=== PATIENT | male | born 2005 | race Caucasian/White ===

== ENCOUNTER 2024-04-16 00:10 | Emergency (ER) | payer BC, SELFPAY ==
[2024-04-16 00:23] VITALS: BP 151/92; PULSE 112; TEMP 37.5; O2SAT 98; BMI 19.2
--- NOTE | 2024-04-16 00:28 | PC.NURSE ---
this patient complains of a headache onset 1 day ago. this patient denies any recent falls, injury or trauma to cause this headache. this patient had is tonsil removed on 04/11/2024 in [facility]
--- NOTE | 2024-04-16 01:00 | ED.GENADUL1 ---
HPI HPI - General Adult General Chief complaint: Headache Stated complaint: HEADACHE, POST SURGERY Time Seen by Provider: 04/16/24 00:17 Source: patient and family Mode of arrival: walk-in Limitations: no limitations History of Present Illness HPI narrative: This 18-year-old male who had a tonsillectomy on April 11 is brought to the emergency department by his mother for evaluation of a bitemporal headache that started yesterday. Postoperatively, the patient initially was not given any pain medication because he was prescribed Roxicet which none of the pharmacies were able to fill. He was then given a prescription for oxycodone which he has been able to tolerate since that time. His headache started Monday. He has been trying to eat but has only been able to eat small amounts due to sore throat and has had very little to drink. He has not had any active bleeding from the tonsils. He has not had a bowel movement since starting to take the oxycodone. His mother states that they called Dr. Zarate and he was told to cut back on the oxycodone and only take a half a oxycodone with one Tylenol every 6 hours which he has been doing without any significant relief. He does not have any neck pain or stiffness. He has had several similar headaches in the past once when he had chickenpox and 1 other time. He does not have a history of chronic headaches. He has mild photophobia and mild nausea but has not vomited. Related Data Home Medications ?Medication ?Instructions ?Recorded ?Confirmed acetaminophen 325 mg tablet (Pain 325 mg PO Q6H PRN fever or pain 04/16/24 04/16/24 Relief (acetaminophen)) oxycodone 5 mg tablet mg 04/16/24 Allergies Allergy/AdvReac Type Severity Reaction Status Date / Time No Known Drug Allergies Allergy Verified 04/16/24 00:21 Opioid HPI Opioid Management Most Recent Opioid Data: Last Pain Scale 10 04/16/24 01:27 04/16/24 Last MAR Pain Assessment 04/16/24 01:27 Review of Systems ROS Status of ROS 10 or more systems reviewed and unremarkable except as noted in history and below PFSH PFSH Social History Little interest or pleasure in doing things: not at all Feeling down, depressed, or hopeless: not at all Exam Narrative Exam Narrative: Vital signs and Nursing Notes reviewed: Patient has a low-grade fever is mildly tachycardic, blood pressure is mildly elevated 150/92, he is not hypoxic with pulse ox of 98% on room air General: Awake, alert, oriented, nontoxic but pale and uncomfortable appearing thin male, no respiratory distress, GCS 15 HEENT: Normocephalic atraumatic, mucous membranes are slightly dry, Neck: Supple, no meningeal signs, mild anterior cervical lymphadenopathy, no nuchal rigidity Chest: Lungs are clear to auscultation with good air entry, there is no wheezing rhonchi or rales appreciated no accessory muscle use, patient is speaking in complete sentences-no chest wall tenderness to palpation CVS: Regular rate and rhythm S1-S2, mildly tachycardic with pulse of 112 at triage no murmurs rubs or gallops, pulses are brisk and equal bilaterally ABD: Soft, nondistended, nontender, no rebound guarding or rigidity, bowel sounds are normal, no pulsatile masses appreciated Extremities: Moving all extremities, no lower extremity tenderness or swelling noted, negative Homans' sign, pulses are brisk and equal bilaterally Skin: Pale, dry, no skin rash noted Neuro: No focal deficits, speech is clear, 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, GCS is 15 Constitutional Vital Signs, click to edit/add: Last Vital Signs Temp 99.5 F 04/16/24 00:23 Pulse 112 H 04/16/24 00:23 Resp 18 04/16/24 00:23 BP 151/92 H 04/16/24 00:23 Pulse Ox 98 04/16/24 00:23 O2 Del Method Room Air 04/16/24 00:23 Course Vital Signs Vital signs: Vital Signs Temperature 99.5 F 04/16/24 00:23 Pulse Rate 112 H 04/16/24 00:23 Respiratory Rate 18 04/16/24 00:23 Blood Pressure 151/92 H 04/16/24 00:23 Pulse Oximetry 98 04/16/24 00:23 Oxygen Delivery Method Room Air 04/16/24 00:23 Temperature 99.5 F 04/16/24 00:23 Pulse Rate 112 H 04/16/24 00:23 Respiratory Rate 18 04/16/24 00:23 Blood Pressure 151/92 H 04/16/24 00:23 Pulse Oximetry 98 04/16/24 00:23 Oxygen Delivery Method Room Air 04/16/24 00:23 Medical Decision Making MDM Narrative Medical decision making narrative: This 18-year-old male who is 5 days postop tonsillectomy at a local surgery center is brought to emergency department by his mother for evaluation of a headache that started yesterday. The patient has been taking a half of a oxycodone and a Tylenol every 6 hours. The mother states he developed a headache yesterday. The medications have not helped his headache. He was initially taking a whole oxycodone and Tylenol and they spoke to the ENT who thought that his headache may be related to the medication who suggested taking just a half. This has not helped him and he has not been able to sleep. He has a bitemporal headache associated with some mild nausea and photophobia. He does not have any nuchal rigidity or fever. The mother states initially he was tolerating liquids and soft foods but has not really eaten in the past 24 hours. The patient's vital signs were stable with the exception of a mildly elevated pulse at 112. He is not having any tonsillar bleeding. His voice is clear. There is no trismus or drooling. He does have some mild fullness in the anterior cervical lymph node chain. An IV was placed and he was medicated with IV fluids, Reglan, Benadryl and 15 mg of Toradol. Routine labs were ordered and are reviewed. He has a normal white count and stable hemoglobin. Electrolytes are normal. LFTs are mildly elevated which are nonspecific in nature. On reevaluation his headache is now a 2 and he feels much more comfortable. The patient has also been constipated since taking the oxycodone and I suggested that he take some MiraLAX which his mother has at home. I did suggest that they speak to the ENT and see if he can transition to taking ibuprofen since he is postop day 5 from his tonsillectomy and has not had any bleeding. He will be discharged home with a prescription for Reglan which may help with his headache and nausea. Lab Data Lab results reviewed: Yes I reviewed the patient's lab results Labs: Lab Results 04/16/24 Range/Units 01:18 WBC 9.1 (4.0-11.0) 10^3/uL RBC 4.93 (4.70-6.10) 10^6/uL Hgb 14.8 (14.0-18.0) g/dL Hct 43.7 (42.0-54.0) % MCV 88.6 (80.0-94.0) fL MCH 30.0 (25.9-34.0) pg MCHC 33.9 (29.9-35.2) g/dL RDW 12.6 (11.0-15.0) % Plt Count 162 (150-450) 10^3/uL MPV 12.1 (9.5-13.5) fL Neut % (Auto) 81.7 H (43.0-75.0) % Lymph % (Auto) 7.9 L (20.5-60.0) % [place] % (Auto) 9.8 (1.7-12.0) % Eos % (Auto) 0.1 L (0.9-7.0) % Baso % (Auto) 0.3 (0.2-2.0) % Neut # (Auto) 7.4 H (1.4-6.5) 10^3/uL Lymph # (Auto) 0.7 L (1.2-3.8) 10^3/uL [place] # (Auto) 0.9 H (0.3-0.8) 10^3/uL Eos # (Auto) 0.0 (0.0-0.7) 10^3/uL Baso # (Auto) 0.0 (0.0-0.1) 10^3/uL Abs Immat Gran (auto) 0.02 (0.00-0.03) 10^3/uL Imm/Tot Granulo (auto) 0.2 (0.0-0.5) % Sodium 140 (136-145) mmol/L Potassium 4.1 (3.5-5.1) mmol/L Chloride 99 (98-107) mmol/L Carbon Dioxide 27.3 (21.0-32.0) mmol/L Anion Gap 17.8 BUN 14.0 (7.0-18.0) mg/dL Creatinine 0.95 (0.70-1.30) mg/dL Est GFR ( Amer) >60 (>=60 mL/min/1.73m^2) Est GFR (Non-Af Amer) >60 (>=60 mL/min/1.73m^2) BUN/Creatinine Ratio 14.7 Glucose 80 (74-106) mg/dL Calcium 9.3 (8.5-10.1) mg/dL Total Bilirubin 1.6 H (0.2-1.0) mg/dL AST 8 L (15-37) U/L ALT 15 L (16-63) U/L Alkaline Phosphatase 63 (46-116) U/L Total Protein 7.7 (6.4-8.2) g/dL Albumin 4.5 (3.4-5.0) g/dL Globulin 3.2 g/dL Albumin/Globulin Ratio 1.4 Discharge Plan Discharge Chief Complaint: Headache Clinical Impression: Headache Patient Disposition: Home, Self-Care Time of Disposition Decision: 02:24 Condition: Good Prescriptions / Home Meds: No Action oxycodone 5 mg tablet acetaminophen [Pain Relief (acetaminophen)] 325 mg tablet 325 mg PO Q6H PRN (Reason: fever or pain) Print Language: Italian Instructions: Acute Headache (ED) Referrals: Matt VAUGHAN [Primary Care Provider] - 1 week
[2024-04-16 01:23] LABS: Basophils Percent Auto 0.3 % (0.2-2.0); Eosinophils Percent Auto 0.1 % (0.9-7.0); Hematocrit 43.7 % (42.0-54.0); Hemoglobin 14.8 g/dL (14.0-18.0); Immature Granulocytes Abs Auto 0.02 10^3/uL (0.00-0.03); Immature Granulocytes Pct Auto 0.2 % (0.0-0.5); Lymphocytes Absolute Auto 0.7 10^3/uL (1.2-3.8); Lymphocytes Percent Auto 7.9 % (20.5-60.0); Mean Corpuscular HGB Conc 33.9 g/dL (29.9-35.2); Mean Corpuscular Volume 88.6 fL (80.0-94.0); Mean Platelet Volume 12.1 fL (9.5-13.5); Monocytes Absolute Auto 0.9 10^3/uL (0.3-0.8); Monocytes Percent Auto 9.8 % (1.7-12.0); Neutrophils Absolute Auto 7.4 10^3/uL (1.4-6.5); Neutrophils Percent Auto 81.7 % (43.0-75.0); Platelet Count 162 10^3/uL (150-450); Red Blood Count 4.93 10^6/uL (4.70-6.10); Red Cell Distribution Width 12.6 % (11.0-15.0); White Blood Count 9.1 10^3/uL (4.0-11.0)
[2024-04-16] MEDS: DIPHENHYDRAMINE HCL 50 MG/ML VIAL 12.5 MG IV (01:26)
[2024-04-16] MEDS: 0.9 % SODIUM CHLORIDE 1,000 ML 1000 ML IV (01:26)
[2024-04-16] MEDS: METOCLOPRAMIDE HCL 10 MG/2 ML VIAL IVP (01:27)
[2024-04-16] MEDS: KETOROLAC TROMETHAMINE 30 MG/ML VIAL 15 MG IVP (01:27)
[2024-04-16 01:41] LABS: Alanine Aminotransferase 15 U/L (16-63); Albumin Globulin Ratio 1.4; Albumin Level 4.5 g/dL (3.4-5.0); Alkaline Phosphatase 63 U/L (46-116); Anion Gap 17.8; Aspartate Amino Transferase 8 U/L (15-37); BUN Creatinine Ratio 14.7; Bilirubin Total 1.6 mg/dL (0.2-1.0); Calcium 9.3 mg/dL (8.5-10.1); Carbon Dioxide 27.3 mmol/L (21.0-32.0); Chloride 99 mmol/L (98-107); Estimated GFR (African America >60 (>=60 mL/min/1.73m^2); Estimated GFR (Non-African Ame >60 (>=60 mL/min/1.73m^2); Globulin 3.2 g/dL; Glucose 80 mg/dL (74-106); Potassium 4.1 mmol/L (3.5-5.1); Sodium 140 mmol/L (136-145); Total Protein 7.7 g/dL (6.4-8.2)
[2024-04-16 02:31] VITALS: BP 139/74; PULSE 72; O2SAT 98
--- NOTE | 2024-04-16 02:38 | PC.NURSE ---
i gave this patient verbal and paper discharge orders along with 1 Rx, and this patient voices yes too understanding these. at time of discharge this patient nor his mother voices no concerns and shows no signs of distress
== END 2024-04-16 02:40 | disposition home or self-care (01) ==
PROVIDERS: Emergency Provider Emergency Medicine; PCP Family Medicine
DX: R51.9 Headache, unspecified (principal); Z98.890 Other specified postprocedural states
CPT/HCPCS: 36415; 80053; 85025; 96374; 96375; 99284; J1200; J1885; J2765

== ENCOUNTER 2024-04-16 06:04 | Day surgery (SDC) | payer BC, SELFPAY ==
[2024-04-16] VITALS (19 sets, daily range): BP systolic 127–158; BP diastolic 76–104; PULSE 61–110; TEMP 36.2–37; O2SAT 93–100
--- NOTE | 2024-04-16 | OP_ITS ---
OPERATION DATE: 04/16/2024 TIME: 09:36 a.m. PREOPERATIVE DIAGNOSIS: Oropharyngeal hemorrhage. POSTOPERATIVE DIAGNOSIS: Oropharyngeal hemorrhage. PROCEDURE: Controllable oropharyngeal hemorrhage. SURGEON: Dawood English D.O. ANESTHESIA: General. BLOOD LOSS: Less than 50 cc. COMPLICATIONS: None. GROSS FINDINGS: This is a 18-year-old white male, who has previously undergone tonsillectomy. Patient developed severe cephalgia requiring visit to the emergency department. He was given Toradol for his headache. Subsequently, he developed acute onset of bleeding. Patient continued to have bleeding despite conservative measures in the emergency room. ENT was subsequently consulted. Patient was examined in the emergency department, found to have evidence of bleeding from the right tonsil fossa. Patient was emergently brought to the operative theater for control. Intraoperatively, a large clot was identified in the inferior aspect of the right tonsil fossa. This was controlled using a combination of suction cautery and hemostatic sutures. Hemostatic material was placed in the tonsil fossa. The stomach was also suctioned. PROCEDURE: Lane was brought to OR suite at [facility], at which time general anesthesia was administered via endotracheal tube. The patient placed in supine position. He was prepped and draped in normal fashion. Mouth gag was placed into the oral airway and opened, exposing the oropharynx. Obvious bleeding was identified in the area of the right tonsil fossa with a large clot. The mouth and throat were suctioned of all residual secretions. The clot was removed from the fossa revealing evidence of bleeding at the inferior pole on the right. This initially was controlled using cauterization with some limitation of the bleeding. Hemostatic sutures were then placed using 3-0 Vicryl figure of eight sutures on a tapered needle. Hemostatic sutures were placed and bleeding was controlled. Mouth and throat suctioned of all residual secretions. Stomach was then suctioned of all residual blood. The mouth gag was then taken off suspension and reopened. Hemostatic Floseal was placed in the tonsil fossa and direct pressure was applied using a tonsil sponge for 2 minutes per side. Once again, the mouth and throat were suctioned of all residual secretions. The mouth gag was released and, once again, reopened after 15 seconds, with no evidence of bleeding. The mouth gag was released and removed from the oral airway. Anesthesia reversed and the patient awoke without difficulty. The patient was taken to Post Anesthesia Care Unit in stable and satisfactory condition. FELIPED
--- NOTE | 2024-04-16 06:20 | ED_ITS ---
Documented by User: Carol Jack MD 04/16/24 06:56 HPI HPI - General Adult General Chief complaint: Dental/Oral Stated complaint: COUGHING BLOOD Time Seen by Provider: 04/16/24 07:14 Source: patient Mode of arrival: walk-in Limitations: no limitations History of Present Illness HPI narrative: This 18-year-old male who is postop day 5 for a tonsillectomy at the local surgery center is brought to the emergency department by his mother for bleeding. The patient was seen in the emergency department earlier for a headache and treated with 15 mg of Toradol Benadryl and Reglan with clinical improvement. Was able to eat 2 popsicles he woke up this morning and spit up some blood. His mother states he spit up quite a bit of blood before coming the emergency department. He has not had any vomiting. He has not had any fever. He is not on any antibiotics. Related Data Home Medications ?Medication ?Instructions ?Recorded ?Confirmed acetaminophen 325 mg tablet (Pain 325 mg PO Q6H PRN fever or pain 04/16/24 04/16/24 Relief (acetaminophen)) oxycodone 5 mg tablet mg 04/16/24 Allergies Allergy/AdvReac Type Severity Reaction Status Date / Time No Known Drug Allergies Allergy Verified 04/16/24 06:15 Opioid HPI Opioid Management Most Recent Opioid Data: Last Pain Scale 10 04/16/24 01:27 04/16/24 Last MAR Pain Assessment 04/16/24 01:27 Review of Systems ROS Status of ROS 10 or more systems reviewed and unremark able except as noted in history and below [facility] Surgical History (Updated 04/16/24 @ 07:41 by Sury Plaza RN) [place] teeth extracted ?K08.409 - Partial loss of teeth, unspecified cause, unspecified class (ICD- 10) History of tonsillectomy ?Z90.89 - Acquired absence of other organs (ICD-10) Social History Little interest or pleasure in doing things: not at all Feeling down, depressed, or hopeless: not at all Exam Narrative Exam Narrative: Vital signs and Nursing Notes reviewed: Patient is mildly tachycardic with a pulse of 101 with elevated blood pressure at 149/104, he is not hypoxic with pulse ox of 99% on room air General: Thin anxious male, he is spitting up mucus with blood no respiratory distress HEENT: Normocephalic atraumatic, mucous membranes are moist and pink, eyes are clear, normal conjunctiva, vision is grossly intact, posterior pharynx reveals a healing eschar with clot on the left tonsillar area, there is no pulsatile bleeding noted patient is gagging due to the blood Neck: Supple, no meningeal signs, no anterior or posterior cervical lymphadenopathy Chest: Lungs are clear to auscultation with good air entry, there is no wheezing rhonchi or rales appreciated no accessory muscle use, patient is speaking in complete sentences-no chest wall tenderness to palpation CVS: Regular rate and rhythm S1-S2, no murmurs rubs or gallops, pulses are brisk and equal bilaterally ABD: Soft, nondistended, nontender, no rebound guarding or rigidity, bowel sounds are normal, no pulsatile masses appreciated Extremities: Moving all extremities Skin: Normal in appearance without rash,pallor, petechiae or purpura Neuro: No focal deficits Constitutional Vital Signs, click to edit/add: Last Vital Signs Pulse 101 H 04/16/24 06:11 Resp 20 04/16/24 06:11 BP 149/104 H 04/16/24 06:11 Pulse Ox 100 04/16/24 06:12 O2 Del Method Room Air 04/16/24 06:12 Course Vital Signs Vital signs: Vital Signs Pulse Rate 101 H 04/16/24 06:11 Respiratory Rate 20 04/16/24 06:11 Blood Pressure 149/104 H 04/16/24 06:11 Pulse Oximetry 99 04/16/24 06:11 Oxygen Delivery Method Room Air 04/16/24 06:11 Pulse Rate 101 H 04/16/24 06:11 Respiratory Rate 20 04/16/24 06:11 Blood Pressure 149/104 H 04/16/24 06:11 Pulse Oximetry 100 04/16/24 06:12 Oxygen Delivery Method Room Air 04/16/24 06:12 Medical Decision Making MDM Narrative Medical decision making narrative: This 18-year-old male who is 5 days postop tonsillectomy presents for evaluation of bleeding. The patient was seen earlier in this emergency department for headache and was medicated with Toradol Benadryl and Reglan with clinical improvement. He appeared to be somewhat dehydrated. His headache resolved but he woke up this morning around 530 and was spitting up clots of blood. He was brought back to the emergency department by his mother. He is mildly tachycardic upon arrival. He does appear to have a clot in the left tonsillar area. There is no pulsatile bleeding or arterial bleeding that I can appreciate. An IV was placed and he was given IV fluids, Zofran in case he swallowed blood as well as IV TXA and nebulized TXA. After the nebulized TXA his spitting of blood and mucus decreased. I did speak to Dr. Zarate who is in agreement with the TXA and suggested after the TXA he gargle with ice water. He states he thought he was supposed to see him later in the day in his office for postop follow-up with the mother states he is supposed to see him on . I explained to her that is likely we can get him seen earlier than in light of this bleeding. Routine labs are reviewed. He did have labs drawn earlier for comparison. His hemoglobin earlier was 14.8 and he did receive a liter of normal saline. His hemoglobin is now 14.2. He has a normal white count. Lab Data Labs: Lab Results 04/16/24 Range/Units 06:35 WBC 8.2 (4.0-11.0) 10^3/uL RBC 4.67 L (4.70-6.10) 10^6/uL Hgb 14.2 (14.0-18.0) g/dL Hct 41.0 L (42.0-54.0) % MCV 87.8 (80.0-94.0) fL MCH 30.4 (25.9-34.0) pg MCHC 34.6 (29.9-35.2) g/dL RDW 12.5 (11.0-15.0) % Plt Count 176 (150-450) 10^3/uL MPV 12.4 (9.5-13.5) fL Neut % (Auto) 72.1 (43.0-75.0) % Lymph % (Auto) 15.6 L (20.5-60.0) % [place] % (Auto) 11.7 (1.7-12.0) % Eos % (Auto) 0.0 L (0.9-7.0) % Baso % (Auto) 0.4 (0.2-2.0) % Neut # (Auto) 5.9 (1.4-6.5) 10^3/uL Lymph # (Auto) 1.3 (1.2-3.8) 10^3/uL [place] # (Auto) 1.0 H (0.3-0.8) 10^3/uL Eos # (Auto) 0.0 (0.0-0.7) 10^3/uL Baso # (Auto) 0.0 (0.0-0.1) 10^3/uL Abs Immat Gran (auto) 0.02 (0.00-0.03) 10^3/uL Imm/Tot Granulo (auto) 0.2 (0.0-0.5) % Sodium 140 (136-145) mmol/L Potassium 4.2 (3.5-5.1) mmol/L Chloride 104 (98-107) mmol/L Carbon Dioxide 25.7 (21.0-32.0) mmol/L Anion Gap 14.5 BUN 15.0 (7.0-18.0) mg/dL Creatinine 0.74 (0.70-1.30) mg/dL Est GFR ( Amer) >60 (>=60 mL/min/1.73m^2) Est GFR (Non-Af Amer) >60 (>=60 mL/min/1.73m^2) BUN/Creatinine Ratio 20.3 Glucose 99 (74-106) mg/dL Calcium 9.0 (8.5-10.1) mg/dL Total Bilirubin 1.6 H (0.2-1.0) mg/dL AST 29 (15-37) U/L ALT 18 (16-63) U/L Alkaline Phosphatase 55 (46-116) U/L Total Protein 7.4 (6.4-8.2) g/dL Albumin 4.1 (3.4-5.0) g/dL Globulin 3.3 g/dL Albumin/Globulin Ratio 1.2 Discharge Plan Discharge Chief Complaint: Dental/Oral Patient Disposition: Admitted to Surgery Prescriptions / Home Meds: No Action oxycodone 5 mg tablet acetaminophen [Pain Relief (acetaminophen)] 325 mg tablet 325 mg PO Q6H PRN (Reason: fever or pain) Print Language: Egyptian Referrals: Matt VAUGHAN [Primary Care Provider] - 1 week Documented by User: Solo Berry MD 04/16/24 07:42 HPI HPI - General Adult General Chief complaint: Dental/Oral Stated complaint: COUGHING BLOOD Time Seen by Provider: 04/16/24 07:14 Related Data Home Medications ?Medication ?Instructions ?Recorded ?Confirmed acetaminophen 325 mg tablet (Pain 325 mg PO Q6H PRN fever or pain 04/16/24 04/16/24 Relief (acetaminophen)) oxycodone 5 mg tablet mg 04/16/24 Allergies Allergy/AdvReac Type Severity Reaction Status Date / Time No Known Drug Allergies Allergy Verified 04/16/24 06:15 Opioid HPI Opioid Management Most Recent Opioid Data: Last Pain Scale 10 04/16/24 01:27 04/16/24 Last MAR Pain Assessment 04/16/24 01:27 PFSH [facility] Surgical History (Updated 04/16/24 @ 07:41 by Sury Plaza RN) [place] teeth extracted ?K08.409 - Partial loss of teeth, unspecified cause, unspecified class (ICD- 10) History of tonsillectomy ?Z90.89 - Acquired absence of other organs (ICD-10) Social History Little interest or pleasure in doing things: not at all Feeling down, depressed, or hopeless: not at all Exam Constitutional Vital Signs, click to edit/add: Last Vital Signs Pulse 101 H 04/16/24 06:11 Resp 20 04/16/24 06:11 BP 149/104 H 04/16/24 06:11 Pulse Ox 100 04/16/24 06:12 O2 Del Method Room Air 04/16/24 06:12 Course Vital Signs Vital signs: Vital Signs Pulse Rate 101 H 04/16/24 06:11 Respiratory Rate 20 04/16/24 06:11 Blood Pressure 149/104 H 04/16/24 06:11 Pulse Oximetry 99 04/16/24 06:11 Oxygen Delivery Method Room Air 04/16/24 06:11 Pulse Rate 101 H 04/16/24 06:11 Respiratory Rate 20 04/16/24 06:11 Blood Pressure 149/104 H 04/16/24 06:11 Pulse Oximetry 100 04/16/24 06:12 Oxygen Delivery Method Room Air 04/16/24 06:12 Medical Decision Making MDM Narrative Medical decision making narrative: This 18-year-old male who is 5 days postop tonsillectomy presents for evaluation of bleeding. The patient was seen earlier in this emergency department for headache and was medicated with Toradol Benadryl and Reglan with clinical improvement. He appeared to be somewhat dehydrated. His headache resolved but he woke up this morning around 530 and was spitting up clots of blood. He was brought back to the emergency department by his mother. He is mildly tachycardic upon arrival. He does appear to have a clot in the left tonsillar area. There is no pulsatile bleeding or arterial bleeding that I can appreciate. An IV was placed and he was given IV fluids, Zofran in case he swallowed blood as well as IV TXA and nebulized TXA. After the nebulized TXA his spitting of blood and mucus decreased. I did speak to Dr. Zarate who is in agreement with the TXA and suggested after the TXA he gargle with ice water. He states he thought he was supposed to see him later in the day in his office f or postop follow-up with the mother states he is supposed to see him on . I explained to her that is likely we can get him seen earlier than in light of this bleeding. Routine labs are reviewed. He did have labs drawn earlier for comparison. His hemoglobin earlier was 14.8 and he did receive a liter of normal saline. His hemoglobin is now 14.2. He has a normal white count. AG [id number] patient was signed out at normal change of shift, has been given IV TXA, as well as nebulized TXA 0711 patient was reevaluated at bedside, continues to have large clots, spitting out blood. Remainder of TXA was given as gargle 0727 patient has a baseline clots, continuously oozing from the back of the right tonsil. He is protecting his airway at this time. Continues to have bleeding 0732 I discussed with ENT, Dr. Breitenbach. He will cancel his case his surgery center and drive here. 0737 operating room team was mobilized. Lab Data Labs: Lab Results 04/16/24 Range/Units 06:35 WBC 8.2 (4.0-11.0) 10^3/uL RBC 4.67 L (4.70-6.10) 10^6/uL Hgb 14.2 (14.0-18.0) g/dL Hct 41.0 L (42.0-54.0) % MCV 87.8 (80.0-94.0) fL MCH 30.4 (25.9-34.0) pg MCHC 34.6 (29.9-35.2) g/dL RDW 12.5 (11.0-15.0) % Plt Count 176 (150-450) 10^3/uL MPV 12.4 (9.5-13.5) fL Neut % (Auto) 72.1 (43.0-75.0) % Lymph % (Auto) 15.6 L (20.5-60.0) % [place] % (Auto) 11.7 (1.7-12.0) % Eos % (Auto) 0.0 L (0.9-7.0) % Baso % (Auto) 0.4 (0.2-2.0) % Neut # (Auto) 5.9 (1.4-6.5) 10^3/uL Lymph # (Auto) 1.3 (1.2-3.8) 10^3/uL [place] # (Auto) 1.0 H (0.3-0.8) 10^3/uL Eos # (Auto) 0.0 (0.0-0.7) 10^3/uL Baso # (Auto) 0.0 (0.0-0.1) 10^3/uL Abs Immat Gran (auto) 0.02 (0.00-0.03) 10^3/uL Imm/Tot Granulo (auto) 0.2 (0.0-0.5) % Sodium 140 (136-145) mmol/L Potassium 4.2 (3.5-5.1) mmol/L Chloride 104 (98-107) mmol/L Carbon Dioxide 25.7 (21.0-32.0) mmol/L Anion Gap 14.5 BUN 15.0 (7.0-18.0) mg/dL Creatinine 0.74 (0.70-1.30) mg/dL Est GFR ( Amer) >60 (>=60 mL/min/1.73m^2) Est GFR (Non-Af Amer) >60 (>=60 mL/min/1.73m^2) BUN/Creatinine Ratio 20.3 Glucose 99 (74-106) mg/dL Calcium 9.0 (8.5-10.1) mg/dL Total Bilirubin 1.6 H (0.2-1.0) mg/dL AST 29 (15-37) U/L ALT 18 (16-63) U/L Alkaline Phosphatase 55 (46-116) U/L Total Protein 7.4 (6.4-8.2) g/dL Albumin 4.1 (3.4-5.0) g/dL Globulin 3.3 g/dL Albumin/Globulin Ratio 1.2 Discharge Plan Discharge Chief Complaint: Dental/Oral Patient Disposition: Admitted to Surgery Prescriptions / Home Meds: No Action oxycodone 5 mg tablet acetaminophen [Pain Relief (acetaminophen)] 325 mg tablet 325 mg PO Q6H PRN (Reason: fever or pain) Print Language: Egyptian Referrals: Matt VAUGHAN [Primary Care Provider] - 1 week
[2024-04-16] MEDS: TRANEXAMIC ACID 1,000 MG in 0.9 % SODIUM CHLORIDE 100 ML 440 MG IV (06:26)
[2024-04-16] MEDS: ONDANSETRON PF 4 MG/2 ML VIAL IV ×2 (06:26→07:30)
[2024-04-16] MEDS: TRANEXAMIC ACID 1,000 MG/10 ML AMPUL 200 MG IH (06:27)
[2024-04-16 06:42] LABS: Basophils Percent Auto 0.4 % (0.2-2.0); Hemoglobin 14.2 g/dL (14.0-18.0); Immature Granulocytes Abs Auto 0.02 10^3/uL (0.00-0.03); Immature Granulocytes Pct Auto 0.2 % (0.0-0.5); Lymphocytes Absolute Auto 1.3 10^3/uL (1.2-3.8); Lymphocytes Percent Auto 15.6 % (20.5-60.0); Mean Corpuscular HGB Conc 34.6 g/dL (29.9-35.2); Mean Corpuscular Hemoglobin 30.4 pg (25.9-34.0); Mean Corpuscular Volume 87.8 fL (80.0-94.0); Mean Platelet Volume 12.4 fL (9.5-13.5); Monocytes Percent Auto 11.7 % (1.7-12.0); Neutrophils Absolute Auto 5.9 10^3/uL (1.4-6.5); Neutrophils Percent Auto 72.1 % (43.0-75.0); Platelet Count 176 10^3/uL (150-450); Red Blood Count 4.67 10^6/uL (4.70-6.10); Red Cell Distribution Width 12.5 % (11.0-15.0); White Blood Count 8.2 10^3/uL (4.0-11.0)
[2024-04-16] MEDS: 0.9 % SODIUM CHLORIDE 1,000 ML 1000 ML IV (06:48)
[2024-04-16 07:03] LABS: Alanine Aminotransferase 18 U/L (16-63); Albumin Globulin Ratio 1.2; Albumin Level 4.1 g/dL (3.4-5.0); Alkaline Phosphatase 55 U/L (46-116); Anion Gap 14.5; Aspartate Amino Transferase 29 U/L (15-37); BUN Creatinine Ratio 20.3; Bilirubin Total 1.6 mg/dL (0.2-1.0); Carbon Dioxide 25.7 mmol/L (21.0-32.0); Chloride 104 mmol/L (98-107); Estimated GFR (African America >60 (>=60 mL/min/1.73m^2); Estimated GFR (Non-African Ame >60 (>=60 mL/min/1.73m^2); Globulin 3.3 g/dL; Glucose 99 mg/dL (74-106); Potassium 4.2 mmol/L (3.5-5.1); Sodium 140 mmol/L (136-145); Total Protein 7.4 g/dL (6.4-8.2)
[2024-04-16] MEDS: LACTATED RINGER'S SOLUTION 1,000 ML 50 ML IV ×2 (07:51→11:30)
--- NOTE | 2024-04-16 09:29 | PM.DS1 ---
DS: Providers Provider Primary care physician: Matt VAUGHAN DS: Summary Time Spent with Patient Time attestation: Total time spent providing and/or coordinating discharge services: Exam Constitutional Vital Signs, click to edit/add: Last Vital Signs Temp 98.6 F 04/16/24 07:43 Pulse 97 H 04/16/24 07:43 Resp 18 04/16/24 07:43 BP 127/86 04/16/24 07:43 Pulse Ox 98 04/16/24 07:43 O2 Del Method Room Air 04/16/24 06:12 DS: Data Data Completed and Pending Labs on day of discharge: Labs from last 24 hours 04/16/24 06:35 WBC 8.2 RBC 4.67 L Hgb 14.2 Hct 41.0 L MCV 87.8 MCH 30.4 MCHC 34.6 RDW 12.5 Plt Count 176 MPV 12.4 Neut % (Auto) 72.1 Lymph % (Auto) 15.6 L [place] % (Auto) 11.7 Eos % (Auto) 0.0 L Baso % (Auto) 0.4 Neut # (Auto) 5.9 Lymph # (Auto) 1.3 [place] # (Auto) 1.0 H Eos # (Auto) 0.0 Baso # (Auto) 0.0 Abs Immat Gran (auto) 0.02 Imm/Tot Granulo (auto) 0.2 Sodium 140 Potassium 4.2 Chloride 104 Carbon Dioxide 25.7 Anion Gap 14.5 BUN 15.0 Creatinine 0.74 Est GFR ( Amer) >60 Est GFR (Non-Af Amer) >60 BUN/Creatinine Ratio 20.3 Glucose 99 Calcium 9.0 Total Bilirubin 1.6 H AST 29 ALT 18 Alkaline Phosphatase 55 Total Protein 7.4 Albumin 4.1 Globulin 3.3 Albumin/Globulin Ratio 1.2 Discharge Plan Discharge Disposition: Home, Self-Care Follow Up Appointments: as scheduled Print Language: Slovenian Referrals: Matt VAUGHAN [Primary Care Provider] - 1 week MESSI BOWLES DO [Physician] -
[2024-04-16] MEDS: HYDROMORPHONE HCL 0.5 MG/0.5 ML SYRINGE IV (09:47)
--- NOTE | 2024-04-16 09:51 | PC.NURSE ---
0945 PAIN MEDICATION GIVEN FOR THROAT PAIN POST PROCEDURE
--- NOTE | 2024-04-16 10:49 | PC.NURSE ---
called to bedside by patient's mother patient became hot and has red blotches on chest. States they do not itch. but they come and go when he gets hot. This fiction and nonfiction prose writer updated Herman Olivares as he was here and states if it worsens we will address at that time. Blotches go away after patient cools off. Patient is very sleepy at this time. Patient also states he has a headache and has chosen to wait on any more pain meds at this time. If he changes his mind he will call out for something for his headache.
[2024-04-16] MEDS: TRAMADOL HCL 50 MG TABLET PO (11:12)
--- NOTE | 2024-04-16 12:23 | PC.NURSE ---
PATIENT HAS BEEN UP TO THE BATHROOM. PAIN IN HIS HEAD IS GONE AND HE IS FEELING MUCH BETTER. PATIENT STATES HIS PAIN IS IN HIS THROAT BUT IT IS TOLERABLE.
--- OUTSIDE RECORDS SUMMARY | 2024-04-30 15:14 | XMS_ITS | CCD ---
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 Name Role Phone MICHELC, DR MERCADO Consulting Unavailable DR Matt GRANDA Primary Care Unavailable MISCony, DR MERCADO Attending Unavailable DERW, DR MERCADO Admitting Unavailable Nickie Rose Attending Provider DO Yomi Granda Primary Care Provider [phone] MD Luisana Grullon Emergency Provider MD Janina Valdovinos Emergency Provider Luca Granda DO Unavailable Luca Granda DO Primary Care Provider GARY Downing Emergency Provider [phone] GARY Bowie Emergency Provider Dawood Bowles DO Unavailable Nickie Rose Attending Provider Yomi Granda DO Primary Care Provider Francine Downing APRN Emergency Provider Ihsan Bowie APRN Emergency Provider Devang Norman DO Emergency Provider Unavai Dawood Sawyer DO Attending Provider Yomi Granda Primary Care Unavailable Devang Norman Admitting Unavailable Devang Norman Attending Unavailable Yomi Granda Primary Care Unavailable Luisana Grullon Admitting Unavailable Luisana Grullon Attending Unavailable Dawood Bowles Attending Unavailable Dawood Bowles Admitting Unavailable Yomi Granda Primary Care Unavailable Janina Valdovinos Admitting Unavailable Janina Valdovinos Attending Unavailable Francine Downing Admitting Unavailable Francine Downing Attending Unavailable Yomi Granda Primary Care Unavailable Yomi Granda Primary Care Unavailable Ihsan Bowie Admitting Unavailable Azeb, Ihsan Attending Unavailable JELENA, DAWOOD Lazo Attending Unavailable JELENA, DAWOOD Lazo Attending Unavailable CLEMENT, LUCA Jarvis Referring Unavailable JELENA, DAWOOD Lazo Attending Unavailable JELENA, DAWOOD Lazo Attending Unavailable CLEMENT, LUCA Jarvis Referring Unavailable JELENA, DAWOOD Lazo Attending Unavailable CLEMENT, LUCA Jarvis Referring Unavailable MARTITA KHAN Attending Unavailable JELENA, DAWOOD Lazo Attending Unavailable CLEMENT, LUCA Jarvis Referring Unavailable CLEMENT, LUCA Jarvis Attending Unavailable CLEMENT, LUCA Jarvis Referring Unavailable CLEMENT, LUCA Jarvis Attending Unavailable JELENA, DAWOOD Lazo Attending Unavailable CAROL, JUANA Ruiz Attending Unavailable CLEMENT, LUCA Jarvis Referring Unavailable CAROL, JUANA Ruiz Attending Unavailable CLEMENT, LUCA Jarvis Referring Unavailable Medications Current Medications Medication Drug Class(es) Dates Sig (Normalized) Sig (Original) azithromycin 250 mg oral tablet (14 sources) Macrolide Antimicrobial Start: 01-23-2024 End: 02-06-2024 azithromycin (Zithromax) 250 MG tablet Indications: Pharyngitis, unspecified etiology Take 2 tablets on day 1, then take 1 tablet for 4 days by mouth 6 tablet 01/23/2024 02/06/2024 Discontinued cefdinir 300 mg oral capsule (7 sources) Cephalosporin Antibacterial Start: 02-02-2024 End: 02-15-2024 take 1 capsule by mouth in the morning cefdinir (Omnicef) 300 MG capsule Indications: Tonsillar abscess , Dermatitis Take 1 capsule (300 mg) by mouth in the morning and 1 capsule (300 mg) before bedtime. Do all this for 10 days. 20 capsule 02/02/2024 02/15/2024 Discontinued clindamycin 300 mg oral capsule (3 sources) Lincosamide Antibacterial Start: 03-26-2024 End: 04-02-2024 clindamycin (Cleocin) 300 MG capsule Indications: Peritonsillar cellulitis Take 1 capsule (300 mg) by mouth in the morning and 1 capsule (300 mg) at noon and 1 capsule (300 mg) in the evening and 1 capsule (300 mg) before bedtime. Do all this for 7 days. 28 capsule 03/26/2024 04/02/2024 Active Start: 03-26-2024 take 3 capsules by m outh every eight hours Clindamycin Hcl 150 mg capsule Active 450 MG PO Every 8 hours 63 March 26, 2024 12:00am 12 hr dextromethorphan hydrobromide 60 mg / guaiFENesin 1200 mg extended release oral tablet (14 sources) Uncompetitive E-cnigkf-C-aspartate Receptor Antagonist, Sigma-1 Agonist Start: 01-23-2024 End: 02-06-2024 dextromethorphan-guaiFENesin (MUCINEX DM MAX STRENGTH) 60-1200 MG 12 hr tablet Indications: Pharyngitis, unspecified etiology Take 1 tablet by mouth every 12 (twelve) hours if needed (BID) 20 tablet 01/23/2024 02/06/2024 Discontinued doxycycline hyclate 100 mg oral capsule (5 sources) Tetracycline-class Drug Start: 02-25-2024 End: 03-06-2024 doxycycline (Vibramycin) 100 MG capsule Indications: Peritonsillar cellulitis Take 1 capsule (100 mg) by mouth in the morning and 1 capsule (100 mg) before bedtime. Do all this for 10 days. Take with at least 8 ounces (large glass) of water, do not lie down for 30 minutes after. 20 capsule 02/25/2024 03/06/2024 Active Lactobacillus Combo No.11 (Probiotic) 15 billion cell capsule, sprinkle (1 source) Start: 03-26-2024 take 1 capsu le by mouth once daily Lactobacillus Combo No.11 (Probiotic) 15 billion cell capsule, sprinkle Active 1 CAP PO Daily 14 March 26, 2024 12:00am do not crush/chew/cut; swallow whole OR may open and sprinkle in cold drink/food methylPREDNISolone (7 sources) Corticosteroid Start: 02-02-2024 End: 02-15-2024 methylPREDNISolone (Medrol Dospak) 4 MG tablets Indications: Tonsillar abscess , Dermatitis Follow schedule on package instructions 21 tablet 02/02/2024 02/15/2024 Discontinued Start: 02-02-2024 End: 02-09-2024 methylPREDNISolone (Medrol D ospak) 4 MG tablets Indications: Tonsillar abscess , Dermatitis Follow schedule on package instructions 21 tablet 02/02/2024 02/09/2024 Active ondansetron 4 mg oral tablet (20 sources) Serotonin-3 Receptor Antagonist Start: 11-21-2023 End: 02-06-2024 take 2 tablets by mouth every eight hours as needed for nausea and vomiting and nausea and nausea ondansetron (Zofran) 4 MG tablet Indications: Nausea Take 2 tablets (8 mg) by mouth every 8 (eight) hours if needed for nausea or vomiting 20 tablet 11/21/2023 02/06/2024 Discontinued Start: 08-10-2017 End: 01-28-2024 take 1 tablet by mouth every eight hours Ondansetron Hcl 4 mg tablet Discontinued 4 MG PO Every 8 hours 6 2 November 16, 2023 11:00pm January 28, 2024 8:13am oxyCODONE hydrochloride 5 mg oral tablet (4 sources) Opioid Agonist Start: 04-12-2024 End: 04-19-2024 take 1 tablet by mouth every six hours for pain oxyCODONE (Roxicodone) 5 MG immediate release tablet Indications: Post-operative pain Take 1 tablet (5 mg) by mouth every 6 (six) hours if needed for severe pain for up to 7 days 20 tablet 04/12/2024 04/19/2024 Active pantoprazole 20 mg delayed release oral tablet (5 sources) Proton Pump Inhibitor Start: 12-13-2023 take 1 tablet by mouth once daily before mealtime pantoprazole (ProtoNix) 20 MG EC tablet Indications: Reflux gastritis TAKE 1 TABLET BY MOUTH ONCE EVERY MORNING BEFORE MEAL *DO NOT CRUSH/CHEW/SPLIT* 90 tablet 1 12/13/2023 Active Start: 11-21-2023 End: 01-23-2024 take 1 tablet by mouth once daily before mealtime pantoprazole (ProtoNix) 20 MG EC tablet Indications: Reflux gastritis TAKE 1 TABLET BY MOUTH ONCE EVERY MORNING BEFORE MEAL *DO NOT CRUSH/CHEW/SPLIT* 90 tablet 1 12/13/2023 01/23/2024 Discontinued Completed/Discontinued Medications Medication Drug Class(es) Dates Sig (Normalized) Sig (Original) 12 hr amoxicillin 1000 mg / clavulanate 62.5 mg extended release oral tablet (3 sources) Penicillin-class Antibacterial Start: 01-28-2024 End: 03-26-2024 Amoxicillin-Pot Clavulanate (Augmentin Xr) 1,000-62.5 mg tablet extended release 12 hr Discontinued 1 TAB PO Twice daily 27 01January 27, 2024 11:00pm March 26, 2024 7:54am ibuprofen 20 mg/ml oral suspension (5 sources) Nonsteroidal Anti-inflammatory Drug Start: 08-10-2017 End: 01-28-2024 take 200 mg by mouth every four to six hours as needed for pain Ibuprofen 100 mg/5 mL Suspension Discontinued 200 MG PO EVERY 4-6 HOURS as needed for Pain August 09, 2017 11:00pm January 28, 2024 8:13am Problems Active Problems Problem Classification Problem Date Documented Da te Episodic/Chronic Acute and chronic tonsillitis (1 source) Chronic tonsillitis; Translations: [Chronic tonsillitis] Onset: 04-11-2024 Chronic Allergic reactions (2 sources) Inflammatory dermatosis; Translations: [Dermatitis, unspecified] 02-02-2024 Episodic Lymphadenitis (10 sources) Cervical lymphadenitis; Translations: [Nonspecific lymphadenitis, unspecified] 01-29-2024 Episodic Other gastrointestinal disorders (4 sources) Diarrhea, unspecified; Translations: [DIARRHEA UNSPECIFIED] Onset: 06-20-2021 Episodic Other nervous system disorders (4 sources) Postoperative pain ; Translations: [Other acute postprocedural pain] 04-11-2024 Episodic Other upper respiratory disease (20 sources) Allergic rhinitis; Translations: [Allergic rhinitis, unspecified] Onset: 10-24-2022 10-24-2022 Chronic Other upper respiratory disease (2 sources) Bleeding of pharynx; Translations: [Other diseases of pharynx] 04-18-2024 Episodic Other upper respiratory infections (4 sources) Sore throat symptom; Translations: [Acute pharyngitis, unspecified] 01-23-2024 Episodic Past or Other Problems Problem Classification Problem Date Documented Da te Episodic/Chronic Acute and chronic tonsillitis (20 sources) Abscess of tonsil ; Translations: [Peritonsillar abscess] Onset: Resolved: 4 01-28-2024 Episodic Gastritis and duodenitis (1 source) Bile-induced gastritis; Translations: [Other gastritis without bleeding] 12-13-2023 Episodic Headache; including migraine (20 sources) Headache; Translations: [Headache] Onset: Resolved: 08-10-2017 Episodic Nausea and vomiting (20 sources) Nausea and vomiting; Translations: [Nausea with vomiting, unspecified] Onset: Resolved: 11-17-2023 Episodic Nonspecific chest pain (20 sources) Chest pain; Translations: [Chest pain, unspecified] Onset: Resolved: 02-07-2024 Episodic Other gastrointestinal disorders (20 sources) Diarrhea; Translations: [Diarrhea, unspecified] Onset: Resolved: 11-17-2023 Episodic Other screening for suspected conditions (not mental disorders or infectious disease) (20 sources) Electrocardiogram abnormal; Translations: [Abnormal electrocardiogram [ECG] [EKG]] Onset: Resolved: 11-17-2023 Episodic Results Test Name Value Interpretation Reference Range Facility Pathology study report docum entOrdered By: Rehana Salmeron on 04-15-2024 Pathology study [facility] Other Abdullahi 04-11-2024 L - -------- Specimen: [id number] Received: 04/11/24 Status: JAKE Last Num: [id number] Spec Type: Surgical Subm Dr: Dawood Bowles,DO Tissues: A Tonsils and/or Adenoids (BILAT TONSILS) Procedures: HE/2, Gross/Micro L3 -------- Age/ Patient Sex Location Account Attending Physician -------- AnnmarieLane Tho 18/M [place] [id number] Dawood Bowles,DO -------- SPEC NUM: [id number] RECD: 04/11/24-1515 STATUS: JAKE LAST NUM: [id number] CHRISTOPHER: 04/11/24- SUBM DR: Dawood Bowles DO ENTERED: 04/11/24-[address] [facility] DR: [facility] SPEC TYPE: Surgical DEPT: S ENTERED BY: [id number] RECV BY: [id number] ORDERED: HE/2, Gross/Micro L3 ORDERED: HE/2, Gross/Micro L3 Pathological Diagnosis Bilateral tonsils, tonsillectomy: Reactive lymphoid hyperplasia. Clinical Information Enlarged tonsils chronic tonsillitis Gross Description Part A is received in formalin labeled with the patients name, date of , and artie. tonsils are bilateral, unoriented palatine tonsils, 3 x 2.3 x 1.7 cm, and 3.2 x 2.2 x 1.5 cm. The first tonsil is inked black. Serial sections reveal spence-pink, glistening, and uniform cut surfaces that display typical tonsillar architecture. Upholsterer Inside sections of the first, inked black tonsil are submitted in A1 with the second tonsil in A2. (2, ss, [id number] A)JG CPT Codes 94653 -------- -------- Specimen: Received: 04/11/24 Status: JKAE Last Num: [id number] Spec Type: Surgical Subm Dr: Dawood Bowles DO Tissues: A Tonsils and/or Adenoids (BILAT TONSILS) Procedures: RAMU/Kristin Ortega/Greg L3 -------- Patient: Lane Anguiano [id number] (Continued) -------- Signed (signature on file) Rehana Salmeron MD 04/15/24 1503 Normal [facility] Basic Metabolic Panelon 03-10 Anion gap [Moles/Vol] 11.4 mmol/L Normal 6.0-15.0 [facility] Comment on above: Performed By: #### C BC, BMP #### [facility] [address] Calcium [Mass/Vol] 9.3 mg/dL Normal 8.6-10.3 [facility] Comment on above: Performed By: #### C BC, BMP #### [facility] [address] Chloride [Moles/Vol] 105 mmol/L Normal 98-107 [facility] Comment on above: Performed By: #### C BC, BMP #### [address] CO2 [Moles/Vol] 26.0 mmol/L Normal 21.0-31.0 [facility] Comment on above: Performed By: #### C BC, BMP #### [address] Creatinine [Mass/Vol] 0.72 mg/dL Normal 0.70-1.30 [facility] Comment on above: Performed By: #### C BC, BMP #### [address] Creatinine Clr Calc Pharmacy 132.87 Normal [facility] Comment on above: Result Comment: PERF ORMED BY: [place] [address] PATHOLOGIST JET OPERATOR REHANA SALMERON M.D. Performed By: #### C BC, BMP #### [place] [address] [place] GFR/1.73 sq M.predicted MDRD (S/P/Bld) [Vol rate/Area] mL/min/{1.73_m2} Normal [facility] Comment on above: Performed By: #### C BC, BMP #### [address] Glucose [Mass/Vol] 86 mg/dL Normal 70-100 [facility] Comment on above: Result Comment: [place] Glucose Reference Range is dependent on time and content of last meal. Glucose of more than 200 mg/dL in a nonstressed, ambulatory subject supports the diagnosis of Diabetes Mellitus. ADA recommended reference range Performed By: #### C BC, BMP #### [facility] [address] Potassium [Moles/Vol] 4.4 mmol/L Normal 3.5-5.1 [facility] Comment on above: Performed By: #### C BC, BMP #### [facility] [address] Sodium [Moles/Vol] 138 mmol/L Normal 136-145 [facility] Comment on above: Performed By: #### C BC, BMP #### [facility] [address] Urea nitrogen [Mass/Vol] 9 mg/dL Normal 7-25 [facility] Comment on above: Performed By: #### C BC, BMP #### [facility] [address] [place] [address] [place] Basophils Auto (Bld) [#/Vol] Ordered By: Devang Norman on 03-26-2024 Basophils (Bld) [#/Vol] Automated basoph il count 0.0-0.2 [facility] Basophils/100 WBC Auto (Bld) Ordered By: Devang Norman on 03-26-2024 Basophils/100 WBC (Bld) Automated basophil % . [facility] COVID Cepheid NegativeOrdere d By: Luisana Grullon on 03-26-2024 SARS-CoV-2 (COVID-19) Ab IA Ql COVID Cepheid Negative [facility] Comment on above: This is a duplicate Cepheid Xpert Xpress CoV-2/Flu/RSV Plus RNA by RT-PCR result to be used for statistical tracking purpose only. COVID-19 / Flu A/B / RSV PCR on 03-26-2024 SARS-CoV-2 (COVID-19) RNA ALEJANDRO+probe Ql (Unsp spec) COVID-19 Cepheid Result Negative for SARS-CoV-2 RNA by RT-PCR Flu A Cepheid Result Negative for Flu A RNA by RT-PCR Flu B Cepheid Result Negative for Flu B RNA by RT-PCR RSV Cepheid Result Negative for RSV RNA by RT-PCR COVID19 Blank Space Reference: Negative COVID19 Blank Space Cepheid Disclaimer The Cepheid Xpert Xpress CoV-2/Flu/RSV Plus has Cepheid Disclaimer not been FDA cleared or approved; this test has Cepheid Disclaimer been authorized by FDA under an EUA for use by Cepheid Disclaimer authorized laboratories; this test has been Cepheid Disclaimer authorized only for the simultaneous qualitative Cepheid Disclaimer detection and differentiation of nucleic acids from Cepheid Disclaimer SARS-CoV-2, influenza A, influenza B, and Cepheid Disclaimer respiratory syncytial virus (RSV), and not for any Cepheid Disclaimer other viruses or pathogens; and this test is only Cepheid Disclaimer authorized for the duration of the declaration that Cepheid Disclaimer circumstances exist justifying the authorization of Cepheid Disclaimer emergency use of in vitro diagnostic tests for Cepheid Disclaimer detection and/or diagnosis of COVID-19 under Cepheid Disclaimer Section 564(b)(1) of the Act, 21 U.S.C. 360bbb- Cepheid Disclaimer 3(b)(1), unless the authorization is terminated or Cepheid Disclaimer revoked sooner. PERFORMED BY: [facility] [place] [address] PATHOLOGIST JET OPERATOR REHANA SALMERON M.D. Normal [facility] Comment on above: Performed By: #### C OVID19 FLU RSV, CEPHEID NEG #### [facility] [address] soft tissue neck w conon 03-26-2024 CT soft tissue neck w con [facility] [place] [address] [place] [address] CT Scan Report Signed Patient: Lane Anguiano MR#: [id number] : 2005 Acct:[id number] Age/Sex: 18 / M ADM Date: 03/26/24 Loc: ER Room: Type: [facility] ER Attending Dr: Copies to: Devang Norman DO Ordering Provider: Devang Norman DO Date of Service: 03/26/24 CT/CT soft tissue neck w con: evaluate tonsillar abscess CT Neck with contrast TECHNIQUE: Axial imaging with 2-D reconstruction. 90cc of Isovue-[address] exam was performed using one or more the following dose reduction techniques: Automated exposure control, adjustment of the MA and/or Kv according to patient size, or use of the iterative reconstruction technique. HISTORY: Sore throat for weeks. Bacitracin mouth. History of tonsil abscess. This was seen with CT examination 01/28/2024. COMPARISON:01/28/2024 ORAL CAVITY: ANTERIOR TWO THIRDS OF THE TONGUE: Unremarkable ROOF OF THE MOUTH: Unremarkable BUCCAL CAVITY: Unremarkable FLOOR OF THE MOUTH: Unremarkable DENTITION: Unremarkable TONSILS: Enlargement of the left tonsil redemonstrated. Redemonstration of hypodensity in the left peritonsillar region. This measures 2.4 x 1.6 cm. Hypodense collection seen with prior examination measures 1.9 x 1.0 cm. PHARYNX: NASOPHARYNX: Unremarkable OROPHARYNX: Unremarkable TONGUE BASE: Unremarkable HYPOPHARYNX: Unremarkable EPIGLOTTIS: The epiglottis is normal. LARYNX: FALSE CORD: Unremarkable VESTIBULE: Unremarkable TRUE CORD: Unremarkable THYROID CARTILAGE: Unremarkable CRICOID CARTILAGE: Unremarkable NECK SPACES: VISCERAL SPACE: Unremarkable CAROTID SPACE: Unremarkable RETROPHARYNGEAL SPACE: Unremarkable POSTERIOR CERVICAL SPACE: Unremarkable PREVERTEBRAL SPACE: Unremarkable CAROTID CIRCULATION AND JUGULAR VEINS No vascular abnormality identified. ADENOPATHY: Mildly prominent cervical lymph nodes. There are redemonstration of enlarged left cervical lymph node in the jugulodigastric region. This is slightly smaller compared prior examination with short axis dimension up to 10 mm. SALIVARY GLANDS: PAROTID GLANDS: Unremarkable SUBMANDIBULAR GLANDS: Unremarkable SUBLINGUAL GLANDS: Unremarkable THYROID GLAND: Redemonstration of subcentimeter left thyroid nodule. BONES:Unremarkable CT/CT soft tissue neck w con IMPRESSION: Redemonstration of hypodense fluid collection in the left peritonsillar region. This is larger compared to prior examination. Consideration for peritonsillar abscess. Impression dictated by: Bill Grullon M.D.03/26/2024 8:37 AM Dictation Location: [place] [address] Transcribed By: [facility] 03/26/2437 Dictated By: Bill Grullon DO 03/26/24 0808 Signed By: 03/26/2437 Normal [facility] Calcium [Mass/volume] in Ser um or PlasmaOrdered By: Devang Norman on 03-26-2024 Calcium [Mass/Vol] Calcium [Mass/volume ] in Serum or Plasma 8.6-10.3 [facility] Carbon dioxide, total [Moles /volume] in Serum or PlasmaOrdered By: Devang Norman on 03-26-2024 CO2 [Moles/Vol] Carbon dioxide, tota l [Moles/volume] in Serum or Plasma 21.0-31.0 [facility] Cepheid COVID PCR Negativeon 03-26-2024 SARS-CoV-2 (COVID-19) RNA ALEJANDRO+probe Ql (Unsp spec) Negative Normal Negative [facility] Comment on above: Result Comment: This is a duplicate Cepheid Xpert Xpress CoV-2/Flu/RSV Plus RNA by RT-PCR result to be used for statistical tracking purpose only. PERFORMED BY: [place] [address] PATHOLOGIST JET OPERATOR REHANA SALMERON M.D. Performed By: #### C OVID19 FLU RSV, CEPHEID NEG #### [address] Chloride [Moles/volume] in S sabi or PlasmaOrdered By: Devang Norman on 03-26-2024 Chloride [Moles/Vol] Chloride [Moles/volume] in Serum or Plasma 98-107 [facility] Complete Blood Count Auto Di ffon 03-26-2024 Basophils (Bld) [#/Vol] 0.1 10*3/uL Normal 0.0-0.2 [facility] Comment on above: Result Comment: PERF ORMED BY: [place] [address] PATHOLOGIST JET OPERATOR REHANA SALMERON M.D. Performed By: #### C BC, BMP #### [place] [address] [place] Basophils/100 WBC (Bld) 0.5 % Normal . [facility] Comment on above: Performed By: #### C BC, BMP #### [address] Eosinophils (Bld) [#/Vol] 0.0 10*3/uL Normal 0.0-0.45 [facility] Comment on above: Performed By: #### C BC, BMP #### [place] [address] [place] Eosinophils/100 WBC (Bld) 0.4 % Normal . [facility] Comment on above: Performed By: #### C BC, BMP #### [address] Erythrocyte distribution width (RBC) [Ratio] 13.7 % Normal 12.0-14.[address] [facility] Comment on above: Performed By: #### C BC, BMP #### [address] Hematocrit (Bld) [Volume fraction] 44.8 % Normal 38.8-50.0 [facility] Comment on above: Performed By: #### C BC, BMP #### [address] Hemoglobin (Bld) [Mass/Vol] 15.0 g/dL Normal 13.0-17.0 [facility] Comment on above: Performed By: #### C BC, BMP #### [facility] [address] Lymphocytes (Bld) [#/Vol] 1.0 10*3/uL Normal 1.00-4.8 [facility] Comment on above: Performed By: #### C BC, BMP #### [facility] [address] [place] [id number] [place] Lymphocytes/100 WBC (Bld) 9.6 % Normal . [facility] Comment on above: Performed By: #### C BC, BMP #### [facility] [address] MCH (RBC) [Entitic mass] 30.7 pg Normal 27.5-35.2 [facility] Comment on above: Performed By: #### C BC, BMP #### [address] MCV (RBC) [Entitic vol] 91.6 fL Normal 83.5-101 [facility] Comment on above: Performed By: #### C BC, BMP #### [address] Mean Corpuscular HGB Conc 33.5 g/dL Normal 32.5-35.6 [facility] Comment on above: Performed By: #### C BC, BMP #### [place] [address] [place] Monocytes (Bld) [#/Vol] 0.9 10*3/uL High 0.0-0.8 [facility] Comment on above: Performed By: #### C BC, BMP #### [facility] [address] [place] [id number] [place] Monocytes/100 WBC (Bld) 18.60 % Normal 0.00-20.00 [facility] Comment on above: Performed By: #### C BC, BMP #### [place] [address] [place] Monocytes/100 WBC (Bld) 8.3 % Normal . [facility] Comment on above: Performed By: #### C BC, BMP #### [facility] [address] [place] [id number] [place] Neutrophils (Bld) [#/Vol] 8.8 10*3/uL High 1.8-7.7 [facility] Comment on above: Performed By: #### C BC, BMP #### [facility] [address] [place] [id number] [place] Neutrophils/100 WBC (Bld) 81.2 % Normal . [facility] Comment on above: Performed By: #### C MATTHEW, BMP #### [facility] [address] [place] [address] [place] NRBC% 0.2 /100{WBC} Normal 0-0.5 [facility] Comment on above: Performed By: #### C MATTHEW, BMP #### [facility] [address] [place] [address] [place] Platelet mean volume (Bld) [Entitic vol] 11.2 fL High 6.6-10.[address] [facility] Comment on above: Performed By: #### C MATTHEW, BMP #### [facility] [address] [place] [address] [place] Platelets (Bld) [#/Vol] 152 10*3/uL Normal 150-450 [facility] Comment on above: Performed By: #### C MATTHEW, BMP #### [facility] [address] [id number] [place] RBC (Bld) [#/Vol] 4.90 10*6/uL Normal 3.90-5.60 [facility] Comment on above: Performed By: #### C MATTHEW, BMP #### [facility] [address] [id number] [place] WBC (Bld) [#/Vol] 10.9 10*3/uL High 4.1-10.5 [facility] Comment on above: Performed By: #### C MATTHEW, BMP #### [place] [id number] [place] Creatinine [Mass/volume] in Serum or PlasmaOrdered By: Devang Norman on 03-26-2024 Creatinine [Mass/Vol] Creatinine [Mass/volume] in Serum or Plasma 0.70-1.30 [facility] Eosinophils Auto (Bld) [#/Vo l]Ordered By: Devang Norman on 03-26-2024 Eosinophils (Bld) [#/Vol] Automated eosinophil count 0.0-0.45 [facility] Eosinophils/100 WBC Auto (Bl d)Ordered By: Devang Norman on 03-26-2024 Eosinophils/100 WBC (Bld) Automated eosinophil % . [facility] Erythrocyte distribution wid th Auto (RBC) [Ratio]Ordered By: Devang Norman on 03-26-2024 Erythrocyte distribution width (RBC) [Ratio] Erythrocyte distribution width [Ratio] by Automated count 12.0-14.8 [facility] Glucose [Mass/volume] in Ser um or PlasmaOrdered By: Devang Norman on 03-26-2024 Glucose [Mass/Vol] Glucose [Mass/volume ] in Serum or Plasma 70-100 [facility] Comment on above: ADA recommended refe rence rangeRandom Glucose Reference Range is dependent on time and content of last meal. Glucose of more than 200 mg/dL in a nonstressed, ambulatory subject supports the diagnosis of Diabetes Mellitus. Hematocrit Auto (Bld) [Volum e fraction]Ordered By: Devang Norman on 03-26-2024 Hematocrit (Bld) [Volume fraction] Hematocrit [Volume Fraction] of Blood by Automated count 38.8-50.0 [facility] Hemoglobin [Mass/volume] in BloodOrdered By: Devang Norman on 03-26-2024 Hemoglobin (Bld) [Mass/Vol] Hemoglobin [Mass/volume] in Blood 13.0-17.0 [facility] Leukocytes [#/volume] correc shekhar for nucleated erythrocytes in Blood by Automated counOrdered By: Devang Norman on 03-26-2024 WBC corrected for nucl RBC Auto (Bld) [#/Vol] Leukocytes [#/volume] corrected for nucleated erythrocytes in Blood by Automated coun High 4.1-10.5 [facility] Lymphocytes Auto (Bld) [#/Vo l]Ordered By: Devang Norman on 03-26-2024 Lymphocytes (Bld) [#/Vol] Lymphocytes [#/volume] in Blood by Automated count 1.00-4.8 [facility] Lymphocytes/100 WBC Auto (Bl d)Ordered By: Devang Norman on 03-26-2024 Lymphocytes/100 WBC (Bld) Lymphocytes/100 leukocytes in Blood by Automated count . [facility] MCH Auto (RBC) [Entitic mass ]Ordered By: Devang Norman on 03-26-2024 MCH (RBC) [Entitic mass] MCH [Entitic ma ss] by Automated count 27.5-35.2 [facility] MCHC Auto (RBC) [Mass/Vol]Or dered By: Devang Norman on 03-26-2024 MCHC (RBC) [Mass/Vol] MCHC [Mass/volume] by Automated count 32.5-35.6 [facility] MCV Auto (RBC) [Entitic vol] Ordered By: Devang Norman on 03-26-2024 MCV (RBC) [Entitic vol] MCV [Entitic vol ume] by Automated count 83.5-101 [facility] Monocyte distribution width [Entitic volume] in Blood by AutomatedOrdered By: Devang Norman on 03-26-2024 Monocyte distribution width Auto (Bld) [Entitic vol] Monocyte distribution width [Entitic volume] in Blood by Automated 0.00-20.00 [facility] Monocytes Auto (Bld) [#/Vol] Ordered By: Devang Norman on 03-26-2024 Monocytes (Bld) [#/Vol] Automated blood monocyte count High 0.0-0.8 [facility] Monocytes/100 WBC Auto (Bld) Ordered By: Devang Norman on 03-26-2024 Monocytes/100 WBC (Bld) Automated monocyte % . [facility] Neutrophils Auto (Bld) [#/Vo l]Ordered By: Devang Norman on 03-26-2024 Neutrophils (Bld) [#/Vol] Neutrophils [#/volume] in Blood by Automated count High 1.8-7.7 [facility] Neutrophils/100 WBC Auto (Bl d)Ordered By: Devang Norman on 03-26-2024 Neutrophils/100 WBC (Bld) Automated neutrophil % . [facility] No Panel InformationOrdered By: Devang Norman on 03-26-2024 Estimated GFR (CKD-EPI) > 60.0 mL/Min [facility] Creatinine Clearance (Chem 132.87 [facility] Nucleated erythrocytes [Pres ence] in Blood by Automated countOrdered By: Devang Norman on 03-26-2024 Nucleated RBC Auto Ql (Bld) Nucleated erythrocytes [Presence] in Blood by Automated count 0-0.5 [facility] Platelet mean volume Auto (B ld) [Entitic vol]Ordered By: Devang Norman on 03-26-2024 Platelet mean volume (Bld) [Entitic vol] Platelet mean volume [Entitic volume] in Blood by Automated count High 6.6-10.1 [facility] Platelets Auto (Bld) [#/Vol] Ordered By: Devang Norman on 03-26-2024 Platelets (Bld) [#/Vol] Platelets [#/vol ume] in Blood by Automated count 150-450 [facility] Potassium [Moles/volume] in Serum or PlasmaOrdered By: Devang Norman on 03-26-2024 Potassium [Moles/Vol] Potassium [Moles/volume] in Serum or Plasma 3.5-5.1 [facility] RBC Auto (Bld) [#/Vol]Ordere d By: Devang Norman on 03-26-2024 RBC (Bld) [#/Vol] Erythrocytes [#/volume] in Blood by Automated count 3.90-5.60 [facility] Respiratory specimen influen za A virus, influenza B virus, respiratory syncytical virOrdered By: Luisana Grullon on 03-26-2024 SARS-CoV-2 (COVID-19) RNA ALEJANDRO+probe Ql (Unsp spec) Respiratory specimen influenza A virus, influenza B virus, respiratory syncytical vir [facility] Serum or plasma anion gap de terminationOrdered By: Devang Norman on 03-26-2024 Anion gap [Moles/Vol] Serum or plasma an ion gap determination 6.0-15.0 [facility] Sodium [Moles/volume] in Ser um or PlasmaOrdered By: Devang Norman on 03-26-2024 Sodium [Moles/Vol] Sodium [Moles/volume ] in Serum or Plasma 136-145 [facility] Urea nitrogen [Mass/volume] in Serum or PlasmaOrdered By: Devang Norman on 03-26-2024 Urea nitrogen [Mass/Vol] Urea nitrogen [Mass/volume] in Serum or Plasma 7-25 [facility] WBC Auto (Bld) [#/Vol]Ordere d By: Devang Norman on 03-26-2024 WBC (Bld) [#/Vol] Leukocytes [#/volume ] in Blood by Automated count High 4.1-10.5 [facility] XR chest 2V*on 03-26-2024 XR chest 2V* [facility] [place] [address] XRay Report Signed Patient: Lane Anguiano MR#: [id number] : 2005 Acct:[id number] Age/Sex: 18 / M ADM Date: 03/26/24 Loc: ER Room: Type: [facility] ER Attending Dr: Copies to: MD Devang Scales DO Ordering Provider: Luisana Grullon MD Date of Service: 03/26/24 XR/XR chest 2V*: fever Plain film chest 2 view HISTORY: Sore throat for weeks COMPARISON: 02/07/2024 FINDINGS: SUPPORT DEVICES: None POSTSURGICAL CHANGES: None HEART: Within normal limits PULMONARY MARINE: Within normal limits MEDIASTINUM: Unremarkable LUNGS AND PLEURA: No acute lung process, pleural effusion or pneumothorax identified. BONY STRUCTURES: Intact ADDITIONAL FINDINGS None XR/XR chest 2V* IMPRESSION: No acute process. Impression dictated by: Bill Grullon M.D.03/26/2024 8:37 AM Dictation Location: [place] [address] Transcribed By: [facility] 03/26/24836 Dictated By: Bill Grullon DO 03/26/24836 Signed By: 03/26/24836 Normal [facility] ECG 12 lead ECGon 02-07-2024 ECG 12 lead ECG [facility] [address] [place] [id number] Electrocardiograph Report Signed Patient: Lane Anguiano MR#: [id number] : 2005 Acct:[id number] Age/Sex: 18 / M ADM Date: 02/07/24 Loc: ER Room: Type: [facility] ER Attending Dr: Ordering Provider: Ihsan Bowie APRN Date of Service: 02/07/24 ECG/ECG 12 lead ECG: Shortness of Breath/Dyspnea Copies to: Test Reason : Blood Pressure : */* mmHG Vent. Rate : 68 BPM Atrial Rate : 68 BPM P-R Int : 108 ms QRS Dur : 92 ms QT Int : 394 ms P-R-T Axes : 22 81 81 degrees QTcB Int : 418 ms Sinus rhythm with short RI Confirmed by Devang Norman DO ([id number]) on 02/07/2024 4:04:07 PM Referred By: Electronically Signed By: Devang Norman DO Transcribed By: MUS Signed By Devang Norman DO 1604 Normal [facility] XR chest 2V*on 02-07-2024 XR chest 2V* [facility] [address] [place] [address] [place] [address] XRay Report Signed Patient: Lane Anguiano MR#: [id number] : 2005 Acct:[id number] Age/Sex: 18 / M ADM Date: 02/07/24 Loc: ER Room: Type: [facility] ER Attending Dr: Copies to: Ihsan Bowie APRN Ordering Provider: Ihsan Bowie APRN Date of Service: 02/07/24 XR/XR chest 2V*: Shortness of Breath/Dyspnea PA AND LATERAL CHEST: CLINICAL HISTORY: Shortness of breath and shaking. Tonsillar abscess. COMPARISON: 11/17/2023 There is no focal parenchymal consolidation, effusion or pneumothorax. The cardiac, hilar and mediastinal silhouettes are within normal limits. There is no vascular congestion. The visualized bony thorax is intact. XR/XR chest 2V* IMPRESSION: NO ACUTE CARDIOPULMONARY ABNORMALITY. Impression dictated by: Cici Simon M.D.02/07/2024 2:49 PM Dictation Location: [id number] Transcribed By: ELENI 02/07/24 1449 Dictated By: Cici Simon MD 02/07/24 1448 Signed By: 02/07/24 1449 Normal [facility] Automated basophil %Ordered By: Francine Downing on 01-28-2024 Basophils/100 WBC (Bld) 0.1 % Normal . [facility] Comment on above: Performed By: #### C OVID19 FLU RSV, CEPHEID NEG #### [address] Automated basophil countOrde red By: Francine Downing on 01-28-2024 Basophils (Bld) [#/Vol] 0.0 10*3/uL Normal 0.0-0.2 [facility] Comment on above: Result Comment: PERF ORMED BY: [place] [address] PATHOLOGIST JET OPERATOR ARMAND BLANCO M.D. Performed By: #### C OVID19 FLU RSV, CEPHEID NEG #### [address] Automated blood monocyte cou nton 01-28-2024 Monocytes (Bld) [#/Vol] 1.5 10*3/uL High 0.0-0.8 [facility] Comment on above: Performed By: #### C OVID19 FLU RSV, CEPHEID NEG #### [address] Automated eosinophil %Ordere d By: Francine Downing on 01-28-2024 Eosinophils/100 WBC (Bld) 0.4 % Normal . [facility] Comment on above: Performed By: #### C OVID19 FLU RSV, CEPHEID NEG #### [address] Automated eosinophil counton 01-28-2024 Eosinophils (Bld) [#/Vol] 0.1 10*3/uL Normal 0.0-0.45 [facility] Comment on above: Performed By: #### C OVID19 FLU RSV, CEPHEID NEG #### [facility] [address] Automated monocyte %Ordered By: Francine Downing on 01-28-2024 Monocytes/100 WBC (Bld) 7.7 % Normal . [facility] Comment on above: Performed By: #### C OVID19 FLU RSV, CEPHEID NEG #### [address] Automated neutrophil %Ordere d By: Francine Downing on 01-28-2024 Neutrophils/100 WBC (Bld) 86.4 % Normal . [facility] Comment on above: Performed By: #### C OVID19 FLU RSV, CEPHEID NEG #### [address] Basic Metabolic Panelon 01-09 Creatinine Clr Calc Pharmacy 141.03 Normal [facility] Comment on above: Result Comment: PERF ORMED BY: [place] [address] PATHOLOGIST JET OPERATOR ARMAND BLANCO M.D. Performed By: #### C OVID19 FLU RSV, CEPHEID NEG #### [address] GFR/1.73 sq M.predicted MDRD (S/P/Bld) [Vol rate/Area] mL/min/{1.73_m2} Normal [facility] Comment on above: Performed By: #### C OVID19 FLU RSV, CEPHEID NEG #### [address] Basic metabolic 1998 panelon 01-28-2024 Anion gap [Moles/Vol] 14.4 mmol/L 6.0 - 15.0 [facility] Calcium [Mass/Vol] 9.4 mg/dL 8.6 - 10. 3 mg/dL [facility] Chloride [Moles/Vol] 103 mmol/L 98 - 10 7 mmol/L [facility] CO2 [Moles/Vol] 24.4 mmol/L 21.0 - 31.0 mmol/L [facility] Creatinine (U) [Mass/Vol] 0.65 mg/dL Low 0.70 - 1.30 mg/dL [facility] CREATININE CLR CALC PHARMACY 141.03 [facility] GFR/1.73 sq M.predicted MDRD (S/P/Bld) [Vol rate/Area] mL/min/{1.73_m2} [facility] Glucose [Mass/Vol] 98 mg/dL 70 - 100 mg/dL [facility] Comment on above: Random Glucose Refer ence Range is dependent on time and content of last meal. Glucose of more than 200 mg/dL in a nonstressed, ambulatory subject supports the diagnosis of Diabetes Mellitus. ADA recommended reference range Potassium [Moles/Vol] 3.8 mmol/L 3.5 - 5.1 mmol/L [facility] Sodium [Moles/Vol] 138 mmol/L 136 - 145 mmol/L [facility] Urea nitrogen [Mass/Vol] 10 mg/dL 7 - 25 mg/d L [facility] Basophils Auto (Bld) [#/Vol] Ordered By: Francine Downing on 01-28-2024 Basophils (Bld) [#/Vol] Automated basoph il count 0.0-0.2 [facility] Basophils/100 WBC Auto (Bld) Ordered By: Francine Downing on 01-28-2024 Basophils/100 WBC (Bld) Automated basophil % . [facility] CBC W Auto Differential pane l (Bld)on 01-28-2024 Basophils (Bld) [#/Vol] 0 10*3/uL 0.0 - 0.2 10*3/uL [facility] Basophils/100 WBC Manual cnt (Syn fld) 0.1 % . [facility] Eosinophils/100 WBC Manual cnt (Syn fld) 0.4 % . [facility] Hematocrit (Bld) [Volume fraction] 44 % 38.8 - 50.0 % [facility] Lymphocytes (Bld) [#/Vol] 1 10*3/uL 1.00 - 4.8 10*3/uL [facility] Lymphocytes/100 WBC Manual cnt (Syn fld) 5.4 % . [facility] MCH (RBC) [Entitic mass] 30 pg 27. 5 - 35.2 pg [facility] MDW 17.09 % 0.00 - 20.00 % [facility] Monocytes+Macrophages/10 0 WBC Manual cnt (Syn fld) 7.7 % . [facility] Neutrophils/100 WBC Manual cnt (Syn fld) 86.4 % . [facility] NRBC 0.1 /100{WBC} 0 - 0.5 /100{WBC} [facility] RBC LM.HPF (Urine sed) [#/Area] 4.91 /[HPF] 3.90 - 5.60 [facility] WBC LM.HPF (Urine sed) [#/Area] 19.5 10*3/uL High 4.1 - 10.5 10*3/uL [facility] CT soft tissue neck w conon 01-28-2024 CT soft tissue neck w [facility] [place] [address] [place] [address] CT Scan Report Signed Patient: Lane Anguiano MR#: [id number] : 2005 Acct:[id number] Age/Sex: 18 / M ADM Date: 01/28/24 Loc: ER Room: Type: [facility] ER Attending Dr: Copies to: Francine Downing APRN Ordering Provider: Francine Downing APRN Date of Service: 01/28/24 CT/CT soft tissue neck w con: Trismus CT SOFT TISSUE NECK WITH CONTRAST COMPARISON: None CLINICAL DATA: Sore throat for the past week with headaches, weakness and fever. Spiral images were obtained through the neck following 90 mL Isovue-300. This CT exam was performed using one or more following dose reduction techniques: Automated exposure control, adjustment of the mA and/or kV according to patient size, or use of iterative reconstruction technique. There is a 7 mm hypodense left thyroid nodule at the inferior pole. The submandibular and parotid glands appear symmetric. The tonsils are prominent, asymmetric on the left where there is a subtle hypodense area measuring approximately 15 x 19 x 10 mm in size that may be a tonsillar abscess. There is no significant mass effect on the airway. The epiglottis and vocal cords are within normal limits. The airway is patent throughout its course with normal appearance the mucosal surfaces. There are shotty cervical lymph nodes. A dominant lymph node node is seen in the jugulodigastric region on the left with short axis dimension of 12 mm. The cervical spine is unremarkable. The imaged paranasal sinuses and mastoid air cells are clear. The upper imaged lungs show no contributory findings. CT/CT soft tissue neck w con IMPRESSION: TONSILLAR ENLARGEMENT AND SUSPECTED LEFT TONSILLAR ABSCESS. LEFT CERVICAL LYMPHADENOPATHY. SMALL HYPODENSE LEFT THYROID NODULE. Impression dictated by: Cici Simon M.D.01/28/2024 10:39 AM Dictation Location: [place] [address] Transcribed By: [facility] 01/28/24 1039 Dictated By: Cici Simon MD 01/28/24 1033 Signed By: 01/28/24 1039 Normal [facility] Calcium [Mass/volume] in Ser um or PlasmaOrdered By: Francine Downing on 01-28-2024 Calcium [Mass/Vol] 9.4 mg/dL Normal 8.6-10.3 [facility] Comment on above: Performed By: #### C OVID19 FLU RSV, CEPHEID NEG #### [facility] [address] Calcium [Mass/Vol] Calcium [Mass/volume ] in Serum or Plasma 8.6-10.3 [facility] Carbon dioxide, total [Moles /volume] in Serum or PlasmaOrdered By: Francine Downing on 01-28-2024 CO2 [Moles/Vol] 24.4 mmol/L Normal 21.0-31.0 [facility] Comment on above: Performed By: #### C OVID19 FLU RSV, CEPHEID NEG #### [facility] [address] [place] [id number] [place] CO2 [Moles/Vol] Carbon dioxide, tota l [Moles/volume] in Serum or Plasma 21.0-31.0 [facility] Chloride [Moles/volume] in S sabi or PlasmaOrdered By: Francine Downing on 01-28-2024 Chloride [Moles/Vol] 103 mmol/L Normal 98-107 [facility] Comment on above: Performed By: #### C OVID19 FLU RSV, CEPHEID NEG #### [facility] [address] [place] [address] [place] Chloride [Moles/Vol] Chloride [Moles/volume] in Serum or Plasma 98-107 [facility] Complete Blood Count Auto Di ffon 01-28-2024 Mean Corpuscular HGB Conc 33.5 g/dL Normal 32.5-35.6 [facility] Comment on above: Performed By: #### C OVID19 FLU RSV, CEPHEID NEG #### [facility] [address] [place] [address] [place] Monocytes/100 WBC (Bld) 17.09 % Normal 0.00-20.00 [facility] Comment on above: Performed By: #### C OVID19 FLU RSV, CEPHEID NEG #### [facility] [address] [place] [address] [place] NRBC% 0.1 /100{WBC} Normal 0-0.5 [facility] Comment on above: Performed By: #### C OVID19 FLU RSV, CEPHEID NEG #### [facility] [address] [place] [address] [place] Creatinine [Mass/volume] in Serum or PlasmaOrdered By: Francine Downing on 01-28-2024 Creatinine [Mass/Vol] 0.65 mg/dL Low 0.70-1.30 [facility] Comment on above: Performed By: #### C OVID19 FLU RSV, CEPHEID NEG #### [facility] [address] [place] [address] [place] Creatinine [Mass/Vol] Creatinine [Mass/volume] in Serum or Plasma Low 0.70-1.30 [facility] Eosinophils Auto (Bld) [#/Vo l]Ordered By: Francine Downing on 01-28-2024 Eosinophils (Bld) [#/Vol] Automated eosinophil count 0.0-0.45 [facility] Eosinophils/100 WBC Auto (Bl d)Ordered By: Francine Downing on 01-28-2024 Eosinophils/100 WBC (Bld) Automated eosinophil % . [facility] Erythrocyte distribution wid th Auto (RBC) [Ratio]Ordered By: Francine Downing on 01-28-2024 Erythrocyte distribution width (RBC) [Ratio] Erythrocyte distribution width [Ratio] by Automated count 12.0-14.8 [facility] Erythrocyte distribution wid th [Ratio] by Automated counton 01-28-2024 Erythrocyte distribution width (RBC) [Ratio] 13.7 % Normal 12.0-14.8 [facility] Comment on above: Performed By: #### C OVID19 FLU RSV, CEPHEID NEG #### [facility] [address] Erythrocytes [#/volume] in B lood by Automated countOrdered By: Francine Downing on 01-28-2024 RBC (Bld) [#/Vol] 4.91 10*6/uL Normal 3.90-5.60 [facility] Comment on above: Performed By: #### C OVID19 FLU RSV, CEPHEID NEG #### [facility] [address] Glucose [Mass/volume] in Ser um or PlasmaOrdered By: Francine Downing on 01-28-2024 Glucose [Mass/Vol] 98 mg/dL Normal 70-100 [facility] Comment on above: ADA recommended refe rence rangeRandom Glucose Reference Range is dependent on time and content of last meal. Glucose of more than 200 mg/dL in a nonstressed, ambulatory subject supports the diagnosis of Diabetes Mellitus. Result Comment: [facility] Glucose Reference Range is dependent on time and content of last meal. Glucose of more than 200 mg/dL in a nonstressed, ambulatory subject supports the diagnosis of Diabetes Mellitus. ADA recommended reference range Performed By: #### C OVID19 FLU RSV, CEPHEID NEG #### [facility] [address] [place] [address] Glucose [Mass/Vol] Glucose [Mass/volume ] in Serum or Plasma 70-100 [facility] Comment on above: ADA recommended refe rence rangeRandom Glucose Reference Range is dependent on time and content of last meal. Glucose of more than 200 mg/dL in a nonstressed, ambulatory subject supports the diagnosis of Diabetes Mellitus. Hematocrit Auto (Bld) [Volum e fraction]Ordered By: Francine Downing on 01-28-2024 Hematocrit (Bld) [Volume fraction] Hematocrit [Volume Fraction] of Blood by Automated count 38.8-50.0 [facility] Hematocrit [Volume Fraction] of Blood by Automated countOrdered By: Francine Downing on 01-28-2024 Hematocrit (Bld) [Volume fraction] 44.0 % Normal 38.8-50.0 [facility] Comment on above: Performed By: #### C OVID19 FLU RSV, CEPHEID NEG #### [address] Hemoglobin [Mass/volume] in Bloodon 01-28-2024 Hemoglobin (Bld) [Mass/Vol] 14.7 g/dL Normal 13.0-17.0 [facility] Comment on above: Performed By: #### C OVID19 FLU RSV, CEPHEID NEG #### [address] Hemoglobin [Mass/volume] in BloodOrdered By: Francine Downing on 01-28-2024 Hemoglobin (Bld) [Mass/Vol] Hemoglobin [Mass/volume] in Blood 13.0-17.0 [facility] Lactate [Moles/volume] in Se rum or PlasmaOrdered By: Francine Downing on 01-28-2024 Lactate [Moles/Vol] 0.8 mmol/L Normal 0.5-2.2 [facility] Comment on above: Result Comment: PERF ORMED BY: [place] [address] PATHOLOGIST JET OPERATOR ARMAND BLANCO M.D. Performed By: #### C OVID19 FLU RSV, CEPHEID NEG #### [address] Lactate [Moles/Vol] Lactate [Moles/volume] in Serum or Plasma 0.5-2.2 [facility] Lactic acid, plasmaon 2023 Lactate [Moles/Vol] 0.8 mmol/L 0.5 - 2. 2 mmol/L [facility] Leukocytes [#/volume] correc shekhar for nucleated erythrocytes in Blood by Automated counOrdered By: Francine Downing on 01-28-2024 WBC corrected for nucl RBC Auto (Bld) [#/Vol] 19.5 10*3/uL High 4.1-10.5 [facility] WBC corrected for nucl RBC Auto (Bld) [#/Vol] Leukocytes [#/volume] corrected for nucleated erythrocytes in Blood by Automated coun High 4.1-10.5 [facility] Leukocytes [#/volume] in Blo od by Automated counton 01-28-2024 WBC (Bld) [#/Vol] 19.5 10*3/uL High 4.1-10.5 [facility] Comment on above: Performed By: #### C OVID19 FLU RSV, CEPHEID NEG #### [facility] [address] [place] [address] Lymphocytes Auto (Bld) [#/Vo l]Ordered By: Francine Downing on 01-28-2024 Lymphocytes (Bld) [#/Vol] Lymphocytes [#/volume] in Blood by Automated count 1.00-4.8 [facility] Lymphocytes [#/volume] in Bl ood by Automated countOrdered By: Francine Downing on 01-28-2024 Lymphocytes (Bld) [#/Vol] 1.0 10*3/uL Normal 1.00-4.8 [facility] Comment on above: Performed By: #### C OVID19 FLU RSV, CEPHEID NEG #### [address] Lymphocytes/100 WBC Auto (Bl d)Ordered By: Francine Downing on 01-28-2024 Lymphocytes/100 WBC (Bld) Lymphocytes/100 leukocytes in Blood by Automated count . [facility] Lymphocytes/100 leukocytes i n Blood by Automated countOrdered By: Francinedemetria Pegueroionato on 01-28-2024 Lymphocytes/100 WBC (Bld) 5.4 % Normal . [facility] Comment on above: Performed By: #### C OVID19 FLU RSV, CEPHEID NEG #### [address] MCH Auto (RBC) [Entitic mass ]Ordered By: Francine Downing on 01-28-2024 MCH (RBC) [Entitic mass] MCH [Entitic ma ss] by Automated count 27.5-35.2 [facility] MCH [Entitic mass] by Automa shekhar countOrdered By: Francine Downing on 01-28-2024 MCH (RBC) [Entitic mass] 30.0 pg Normal 27.5-35.2 [facility] Comment on above: Performed By: #### C OVID19 FLU RSV, CEPHEID NEG #### [facility] [address] MCHC Auto (RBC) [Mass/Vol]Or dered By: Francine Downing on 01-28-2024 MCHC (RBC) [Mass/Vol] MCHC [Mass/volume] by Automated count 32.5-35.6 [facility] MCHC [Mass/volume] by Automa shekhar counton 01-28-2024 MCHC (RBC) [Mass/Vol] 33.5 g/dL 32.5-35.6 [facility] MCV Auto (RBC) [Entitic vol] Ordered By: Francine Donwing on 01-28-2024 MCV (RBC) [Entitic vol] MCV [Entitic vol ume] by Automated count 83.5-101 [facility] MCV [Entitic volume] by Auto mated counton 01-28-2024 MCV (RBC) [Entitic vol] 89.6 fL Normal 83.5-101 [facility] Comment on above: Performed By: #### C OVID19 FLU RSV, CEPHEID NEG #### [facility] [address] Monocyte distribution width [Entitic volume] in Blood by AutomatedOrdered By: Francine Downing on 01-28-2024 Monocyte distribution width Auto (Bld) [Entitic vol] 17.09 % 0.00-20.00 [facility] Monocyte distribution width Auto (Bld) [Entitic vol] Monocyte distribution width [Entitic volume] in Blood by Automated 0.00-20.00 [facility] Monocytes Auto (Bld) [#/Vol] Ordered By: Francine Downing on 01-28-2024 Monocytes (Bld) [#/Vol] Automated blood monocyte count High 0.0-0.8 [facility] Monocytes/100 WBC Auto (Bld) Ordered By: Francine Downing on 01-28-2024 Monocytes/100 WBC (Bld) Automated monocyte % . [facility] Mononucleosis screenon 01-27 MONOTEST Negative Negative [facility] Monoteston 01-28-2024 Monotest Negative Normal Negative [facility] Comment on above: Result Comment: PERF ORMED BY: [address] [place] [address] PATHOLOGIST JET OPERATOR ARMAND BLANCO M.D. Performed By: #### C BC, BMP #### [facility] [address] [place] [address] [place] Neutrophils Auto (Bld) [#/Vo l]Ordered By: Francine Downing on 01-28-2024 Neutrophils (Bld) [#/Vol] Neutrophils [#/volume] in Blood by Automated count High 1.8-7.7 [facility] Neutrophils [#/volume] in Bl ood by Automated counton 01-28-2024 Neutrophils (Bld) [#/Vol] 16.8 10*3/uL High 1.8-7.7 [facility] Comment on above: Performed By: #### C OVID19 FLU RSV, CEPHEID NEG #### [facility] [address] [place] [address] [place] Neutrophils/100 WBC Auto (Bl d)Ordered By: Francine Downing on 01-28-2024 Neutrophils/100 WBC (Bld) Automated neutrophil % . [facility] No Panel Informationon 01-27 Interpretation and review of laboratory results Abnormal [facility] No Panel InformationOrdered By: Francine Downing on 01-28-2024 Estimated GFR (CKD-EPI) > 60.0 mL/Min [facility] Creatinine Clearance (Chem 141.03 [facility] Nucleated erythrocytes [Pres ence] in Blood by Automated countOrdered By: Francine Downing on 01-28-2024 Nucleated RBC Auto Ql (Bld) 0.1 /100{WBC} 0-0.5 [facility] Nucleated RBC Auto Ql (Bld) Nucleated erythrocytes [Presence] in Blood by Automated count 0-0.5 [facility] Platelet mean volume Auto (B ld) [Entitic vol]Ordered By: Francine Downing on 01-28-2024 Platelet mean volume (Bld) [Entitic vol] Platelet mean volume [Entitic volume] in Blood by Automated count 6.6-10.1 [facility] Platelet mean volume [Entiti c volume] in Blood by Automated counton 01-28-2024 Platelet mean volume (Bld) [Entitic vol] 10.1 fL Normal 6.6-10.1 [facility] Comment on above: Performed By: #### C OVID19 FLU RSV, CEPHEID NEG #### [facility] [address] [place] [address] [place] Platelets Auto (Bld) [#/Vol] Ordered By: Francine Downing on 01-28-2024 Platelets (Bld) [#/Vol] Platelets [#/vol ume] in Blood by Automated count 150-450 [facility] Platelets [#/volume] in Bloo d by Automated counton 01-28-2024 Platelets (Bld) [#/Vol] 238 10*3/uL Normal 150-450 [facility] Comment on above: Performed By: #### C OVID19 FLU RSV, CEPHEID NEG #### [facility] [address] [place] [address] [place] Potassium [Moles/volume] in Serum or PlasmaOrdered By: Francine Downing on 01-28-2024 Potassium [Moles/Vol] 3.8 mmol/L Normal 3.5-5.1 [facility] Comment on above: Performed By: #### C OVID19 FLU RSV, CEPHEID NEG #### [facility] [address] [place] [address] [place] Potassium [Moles/Vol] Potassium [Moles/volume] in Serum or Plasma 3.5-5.1 [facility] RBC Auto (Bld) [#/Vol]Ordere d By: Francine Downing on 01-28-2024 RBC (Bld) [#/Vol] Erythrocytes [#/volume] in Blood by Automated count 3.90-5.60 [facility] Serum heterophile antibody d etection by latex agglutinationOrdered By: Francine Downing on 01-28-2024 Heterophile Ab LA Ql (S) Negative Negative [facility] Heterophile Ab LA Ql (S) Serum heterophi le antibody detection by latex agglutination Negative [facility] Serum or plasma anion gap de terminationOrdered By: Francine Downing on 01-28-2024 Anion gap [Moles/Vol] 14.4 mmol/L Normal 6.0-15.0 [facility] Comment on above: Performed By: #### C OVID19 FLU RSV, CEPHEID NEG #### [facility] [address] [place] [address] [place] Anion gap [Moles/Vol] Serum or plasma an ion gap determination 6.0-15.0 [facility] Sodium [Moles/volume] in Ser um or PlasmaOrdered By: Francine Downing on 01-28-2024 Sodium [Moles/Vol] 138 mmol/L Normal 136-145 [facility] Comment on above: Performed By: #### C OVID19 FLU RSV, CEPHEID NEG #### [facility] [address] [place] [address] [place] Sodium [Moles/Vol] Sodium [Moles/volume ] in Serum or Plasma 136-145 [facility] Urea nitrogen [Mass/volume] in Serum or PlasmaOrdered By: Francine Downing on 01-28-2024 Urea nitrogen [Mass/Vol] 10 mg/dL Normal 11-01 [facility] Comment on above: Performed By: #### C OVID19 FLU RSV, CEPHEID NEG #### [facility] [address] [place] [id number] [place] Urea nitrogen [Mass/Vol] Urea nitrogen [Mass/volume] in Serum or Plasma 11-01 [facility] WBC Auto (Bld) [#/Vol]Ordere d By: Francine Downing on 01-28-2024 WBC (Bld) [#/Vol] Leukocytes [#/volume ] in Blood by Automated count High 4.1-10.5 [facility] Laboratory - Microbiology an d Antimicrobial susceptibilityon 01-23-2024 S. pyogenes Ag Ql (Throat) Negative Negative, None Detected [facility] No Panel Informationon 01-22 Interpretation and review of laboratory results Normal [facility] Alanine aminotransferase [En zymatic activity/volume] in Serum or PlasmaOrdered By: Janina Valdovinos on 11-17-2023 ALT [Catalytic activity/Vol] 13 U/L Normal [facility] Comment on above: Performed By: #### C OVID19 FLU RSV, CEPHEID NEG #### [facility] [address] [place] [address] [place] Alanine aminotransferase [En zymatic activity/volume] in Serum or PlasmaOrdered By: Luisana Grullon on 11-17-2023 ALT [Catalytic activity/Vol] 14 U/L Normal [facility] Comment on above: Performed By: #### M Matt, JIMMY, CMP, CBC, PHOS #### [facility] [address] [place] [address] [place] Albumin [Mass/volume] in Ser um or Plasma by Bromocresol green (BCG) dye binding methoOrdered By: Janina Valdovinos on 11-17-2023 Albumin BCG dye [Mass/Vol] 4.6 g/dL 3.5-5.7 [facility] Albumin [Mass/volume] in Ser um or Plasma by Bromocresol green (BCG) dye binding methoOrdered By: Luisana Grullon on 11-17-2023 Albumin BCG dye [Mass/Vol] 5.1 g/dL 3.5-5.7 [facility] Alkaline phosphatase [Enzyma tic activity/volume] in Serum or PlasmaOrdered By: Janina Valdovinos on 11-17-2023 ALP [Catalytic activity/Vol] 44 U/L Normal 34-104 [facility] Comment on above: Performed By: #### C OVID19 FLU RSV, CEPHEID NEG #### [facility] [address] [place] [id number] [place] Alkaline phosphatase [Enzyma tic activity/volume] in Serum or PlasmaOrdered By: Luisana Grullon on 11-17-2023 ALP [Catalytic activity/Vol] 52 U/L Normal 34-104 [facility] Comment on above: Performed By: #### M G, DDIMER, CMP, CBC, PHOS #### [address] Aspartate aminotransferase [ Enzymatic activity/volume] in Serum or PlasmaOrdered By: Janina Valdovinos on 11-17-2023 AST [Catalytic activity/Vol] 14 U/L Normal [facility] Comment on above: Performed By: #### C OVID19 FLU RSV, CEPHEID NEG #### [address] Aspartate aminotransferase [ Enzymatic activity/volume] in Serum or PlasmaOrdered By: Luisana Grullon on 11-17-2023 AST [Catalytic activity/Vol] 17 U/L Normal [facility] Comment on above: Performed By: #### M G, DDIMER, CMP, CBC, PHOS #### [address] Automated basophil %Ordered By: Janina Valdovions on 11-17-2023 Basophils/100 WBC (Bld) 0.3 % Normal . [facility] Comment on above: Performed By: #### C OVID19 FLU RSV, CEPHEID NEG #### [address] Automated basophil %Ordered By: Luisana Grullon on 11-17-2023 Basophils/100 WBC (Bld) 0.2 % Normal . [facility] Comment on above: Performed By: #### M G, DDIMER, CMP, CBC, PHOS #### [address] Automated basophil countOrde red By: Janina Valdovinos on 11-17-2023 Basophils (Bld) [#/Vol] 0.0 10*3/uL Normal 0.0-0.2 [facility] Comment on above: Result Comment: PERF ORMED BY: [place] [address] PATHOLOGIST JET OPERATOR ARMAND BLANCO M.D. Performed By: #### C OVID19 FLU RSV, CEPHEID NEG #### [address] Automated basophil countOrde red By: Luisana Grullon on 11-17-2023 Basophils (Bld) [#/Vol] 0.0 10*3/uL Normal 0.0-0.2 [facility] Comment on above: Result Comment: PERF ORMED BY: [place] [address] PATHOLOGIST JET OPERATOR ARMAND BLANCO M.D. Performed By: #### M G, DDIMER, CMP, CBC, PHOS #### [address] Automated blood monocyte cou ntOrdered By: Janina Valdovinos on 11-17-2023 Monocytes (Bld) [#/Vol] 0.8 10*3/uL Normal 0.0-0.8 [facility] Comment on above: Performed By: #### C OVID19 FLU RSV, CEPHEID NEG #### [address] Automated blood monocyte cou ntOrdered By: Luisana Grullon on 11-17-2023 Monocytes (Bld) [#/Vol] 0.8 10*3/uL Normal 0.0-0.8 [facility] Comment on above: Performed By: #### M G, DDIMER, CMP, CBC, PHOS #### [address] Automated eosinophil %Ordere d By: Janina Valdovinos on 11-17-2023 Eosinophils/100 WBC (Bld) 0.1 % Normal . [facility] Comment on above: Performed By: #### C OVID19 FLU RSV, CEPHEID NEG #### [address] Automated eosinophil %Ordere d By: Luisana Grullon on 11-17-2023 Eosinophils/100 WBC (Bld) 0.3 % Normal . [facility] Comment on above: Performed By: #### M G, DDIMER, CMP, CBC, PHOS #### [address] Automated eosinophil countOr dered By: Janina Valdovinos on 11-17-2023 Eosinophils (Bld) [#/Vol] 0.0 10*3/uL Normal 0.0-0.45 [facility] Comment on above: Performed By: #### C OVID19 FLU RSV, CEPHEID NEG #### [address] Automated eosinophil countOr dered By: Luisana Grullon on 11-17-2023 Eosinophils (Bld) [#/Vol] 0.0 10*3/uL Normal 0.0-0.45 [facility] Comment on above: Performed By: #### M G, DDIMER, CMP, CBC, PHOS #### [address] Automated monocyte %Ordered By: Janina Valdovinos on 11-17-2023 Monocytes/100 WBC (Bld) 8.3 % Normal . [facility] Comment on above: Performed By: #### C OVID19 FLU RSV, CEPHEID NEG #### [address] Automated monocyte %Ordered By: Luisana Grullon on 11-17-2023 Monocytes/100 WBC (Bld) 4.6 % Normal . [facility] Comment on above: Performed By: #### M G, DDIMER, CMP, CBC, PHOS #### [address] Automated neutrophil %Ordere d By: Janina Valdovinos on 11-17-2023 Neutrophils/100 WBC (Bld) 89.0 % Normal . [facility] Comment on above: Performed By: #### C OVID19 FLU RSV, CEPHEID NEG #### [address] Automated neutrophil %Ordere d By: Luisana Grullon on 11-17-2023 Neutrophils/100 WBC (Bld) 92.9 % Normal . [facility] Comment on above: Performed By: #### M G, DDIMER, CMP, CBC, PHOS #### [address] Bilirubin Test strip Ql (U)O rdered By: Luisana Grullon on 11-17-2023 Bilirubin Ql (U) Negative Negative [facility] Bilirubin.total [Mass/volume ] in Serum or PlasmaOrdered By: Janina Valdovinos on 11-17-2023 Bilirubin [Mass/Vol] 1.5 mg/dL High 0.3-1.0 [facility] Comment on above: Samples from patient s who have taken Naproxen have shown spurious elevation in Total Bilirubin levels. A metabolite of Naproxen, O-desmethylnaproxen, has been shown to interfere with the Jendrassik-Grof method for measuring Total Bilirubin. Result Comment: Samp les from patients who have taken Naproxen have shown spurious elevation in Total Bilirubin levels. A metabolite of Naproxen, O-desmethylnaproxen, has been shown to interfere with the Jendrassik-Grof method for measuring Total Bilirubin. Performed By: #### C OVID19 FLU RSV, CEPHEID NEG #### [facility] [address] [place] [address] [place] Bilirubin.total [Mass/volume ] in Serum or PlasmaOrdered By: Luisana Grullon on 11-17-2023 Bilirubin [Mass/Vol] 1.9 mg/dL High 0.3-1.0 [facility] Comment on above: Samples from patient s who have taken Naproxen have shown spurious elevation in Total Bilirubin levels. A metabolite of Naproxen, O-desmethylnaproxen, has been shown to interfere with the Jendrassik-Grof method for measuring Total Bilirubin. Result Comment: Samp les from patients who have taken Naproxen have shown spurious elevation in Total Bilirubin levels. A metabolite of Naproxen, O-desmethylnaproxen, has been shown to interfere with the Jendrassik-Grof method for measuring Total Bilirubin. Performed By: #### M G, DDIMER, CMP, CBC, PHOS #### [facility] [address] [place] [address] [place] COVID CepheidOrdered By: Farzad Grullon on 11-17-2023 SARS-CoV-2 (COVID-19) Ab IA Ql Negative Negative [facility] Comment on above: This is a duplicate Cepheid Xpert Xpress CoV-2/Flu/RSV Plus RNA by RT-PCR result to be used for statistical tracking purpose only. SARS-CoV-2 (COVID-19) RNA ALEJANDRO+probe Ql (Unsp spec) [facility] COVID-19 / Flu A/B / RSV PCR on 11-17-2023 SARS-CoV-2 (COVID-19) RNA ALEJANDRO+probe Ql (Unsp spec) COVID-19 Cepheid Result Negative for SARS-CoV-2 RNA by RT-PCR Flu A Cepheid Result Negative for Flu A RNA by RT-PCR Flu B Cepheid Result Negative for Flu B RNA by RT-PCR RSV Cepheid Result Negative for RSV RNA by RT-PCR COVID19 Blank Space Reference: Negative COVID19 Blank Space Cepheid Disclaimer The Cepheid Xpert Xpress CoV-2/Flu/RSV Plus has Cepheid Disclaimer not been FDA cleared or approved; this test has Cepheid Disclaimer been authorized by FDA under an EUA for use by Cepheid Disclaimer authorized laboratories; this test has been Cepheid Disclaimer authorized only for the simultaneous qualitative Cepheid Disclaimer detection and differentiation of nucleic acids from Cepheid Disclaimer SARS-CoV-2, influenza A, influenza B, and Cepheid Disclaimer respiratory syncytial virus (RSV), and not for any Cepheid Disclaimer other viruses or pathogens; and this test is only Cepheid Disclaimer authorized for the duration of the declaration that Cepheid Disclaimer circumstances exist justifying the authorization of Cepheid Disclaimer emergency use of in vitro diagnostic tests for Cepheid Disclaimer detection and/or diagnosis of COVID-19 under Cepheid Disclaimer Section 564(b)(1) of the Act, 21 U.S.C. 360bbb- Cepheid Disclaimer 3(b)(1), unless the authorization is terminated or Cepheid Disclaimer revoked sooner. PERFORMED BY: [place] [address] PATHOLOGIST JET OPERATOR ARMAND BLANCO M.D. Normal [facility] Comment on above: Performed By: #### C OVID19 FLU RSV, CEPHEID NEG #### [address] abdomen pelvis w conon CT abdomen pelvis w con [facility] [place] [address] [place] [address] CT Scan Report Signed Patient: Lane Anguiano MR#: [id number] : 2005 Acct:[id number] Age/Sex: 18 / M ADM Date: 11/17/23 Loc: ER Room: Type: [facility] ER Attending Dr: Copies to: Luisana Grullon MD Ordering Provider: Luisana Grullon MD Date of Service: 11/17/23 CT/CT abdomen pelvis w con: n/v/d, leukocytosis, generalized abd tenderness CT ABDOMEN AND PELVIS WITH CONTRAST COMPARISON: None CLINICAL DATA: Nausea, vomiting, diarrhea and headache. Spiral images were obtained through the abdomen and pelvis following 90 mL Isovue-300. This CT exam was performed using one or more following dose reduction techniques: Automated exposure control, adjustment of the mA and/or kV according to patient size, or use of iterative reconstruction technique. Limited cuts through the lung bases show no contributory findings. There is some streak artifact through the upper abdomen. No calcified gallstones are identified. No intrahepatic masses are noted. The spleen, pancreas and adrenal glands show no acute findings. The renal nephrograms are symmetric. No hydronephrosis is identified. The abdominal aorta is normal caliber. Tiny lymph nodes are present. No ascites is seen. Small bowel loops are not disproportionately distended though there are some that contain fluid. There is also a small amount of fluid along with air within the colon. Slight dextroscoliotic curvature is present. Images through the pelvis show nondistended small bowel loops, some of which contain fluid. No appendiceal inflammation is present. The distal colon is underdistended. There is no diverticular disease. No urinary bladder abnormalities are present. There is no ascites. There are small benign- appearing inguinal lymph nodes. CT/CT abdomen pelvis w con IMPRESSION: NO BOWEL OR URINARY TRACT OBSTRUCTION. NONDISTENDED FLUID CONTAINING BOWEL COMPATIBLE WITH HISTORY OF DIARRHEAL ILLNESS. NO OTHER ACUTE FINDINGS. Impression dictated by: Cici Simon M.D.11/17/2023 10:07 AM Dictation Location: [place] [address] Transcribed By: [facility] 11/17/23 1007 Dictated By: Cici Simon MD 11/17/23 1001 Signed By: 11/17/23 1007 Normal [facility] Calcium [Mass/volume] in Ser um or PlasmaOrdered By: Janina Valdovinos on 11-17-2023 Calcium [Mass/Vol] 8.9 mg/dL Normal 8.6-10.3 [facility] Comment on above: Performed By: #### C OVID19 FLU RSV, CEPHEID NEG #### [facility] [address] [place] [address] [place] Calcium [Mass/volume] in Ser um or PlasmaOrdered By: Luisana Grullon on 11-17-2023 Calcium [Mass/Vol] 9.7 mg/dL Normal 8.6-10.3 [facility] Comment on above: Performed By: #### M Matt, DDIMER, CMP, CBC, PHOS #### [facility] [address] [place] [address] [place] Carbon dioxide, total [Moles /volume] in Serum or PlasmaOrdered By: Janina Valdovinos on 11-17-2023 CO2 [Moles/Vol] 24.1 mmol/L Normal 21.0-31.0 [facility] Comment on above: Performed By: #### C OVID19 FLU RSV, CEPHEID NEG #### [facility] [address] [place] [address] [place] Carbon dioxide, total [Moles /volume] in Serum or PlasmaOrdered By: Luisana Grullon on 11-17-2023 CO2 [Moles/Vol] 24.1 mmol/L Normal 21.0-31.0 [facility] Comment on above: Performed By: #### M G, DDIMER, CMP, CBC, PHOS #### [address] Cepheid COVID PCR Negativeon 11-17-2023 SARS-CoV-2 (COVID-19) RNA ALEJANDRO+probe Ql (Unsp spec) Negative Normal Negative [facility] Comment on above: Result Comment: This is a duplicate Cepheid Xpert Xpress CoV-2/Flu/RSV Plus RNA by RT-PCR result to be used for statistical tracking purpose only. PERFORMED BY: [place] [address] PATHOLOGIST JET OPERATOR ARMAND BLANCO M.D. Performed By: #### C OVID19 FLU RSV, CEPHEID NEG #### [place] [address] [place] Chloride [Moles/volume] in S sabi or PlasmaOrdered By: Janina Valdovinos on 11-17-2023 Chloride [Moles/Vol] 106 mmol/L Normal 98-107 [facility] Comment on above: Performed By: #### C OVID19 FLU RSV, CEPHEID NEG #### [place] [address] [place] Chloride [Moles/volume] in S sabi or PlasmaOrdered By: Luisana Grullon on 11-17-2023 Chloride [Moles/Vol] 106 mmol/L Normal 98-107 [facility] Comment on above: Performed By: #### M G, DDIMER, CMP, CBC, PHOS #### [address] Color of Urine by AutoOrdere d By: Luisana Grullon on 11-17-2023 Color (U) Colorless Normal Yellow [facility] Comment on above: Order Comment: Name Collection Type:: Clean-Voided Midstream Performed By: #### U A #### [address] Complete Blood Count Auto Di ffon 11-17-2023 Mean Corpuscular HGB Conc 34.0 g/dL Normal 32.5-35.6 [facility] Comment on above: Performed By: #### C OVID19 FLU RSV, CEPHEID NEG #### [address] Monocytes/100 WBC (Bld) 26.24 % High 0.00-20.00 [facility] Comment on above: Result Comment: For adults in ED, MDW > 20.0 may be associated with a higher risk of sepsis during the first 12 hrs of hospital admission Performed By: #### C OVID19 FLU RSV, CEPHEID NEG #### [address] NRBC% 0.0 /100{WBC} Normal 0-0.5 [facility] Comment on above: Performed By: #### C OVID19 FLU RSV, CEPHEID NEG #### [address] Mean Corpuscular HGB Conc 33.4 g/dL Normal 32.5-35.6 [facility] Comment on above: Performed By: #### M G, DDIMER, CMP, CBC, PHOS #### [address] Monocytes/100 WBC (Bld) 18.38 % Normal 0.00-20.00 [facility] Comment on above: Performed By: #### M G, DDIMER, CMP, CBC, PHOS #### [address] NRBC% 0.1 /100{WBC} Normal 0-0.5 [facility] Comment on above: Performed By: #### M G, DDIMER, CMP, CBC, PHOS #### [address] Comprehensive Metabolic Pane abdullahi 11-17-2023 Albumin [Mass/Vol] 4.6 g/dL Normal 3.5-5.7 [facility] Comment on above: Performed By: #### C OVID19 FLU RSV, CEPHEID NEG #### [address] Creatinine Clr Calc Pharmacy 126.19 Normal [facility] Comment on above: Result Comment: PERF ORMED BY: [place] [address] PATHOLOGIST JET OPERATOR ARMAND BLANCO M.D. Performed By: #### C OVID19 FLU RSV, CEPHEID NEG #### [facility] [address] [place] [address] [place] GFR/1.73 sq M.predicted MDRD (S/P/Bld) [Vol rate/Area] mL/min/{1.73_m2} Normal [facility] Comment on above: Performed By: #### C OVID19 FLU RSV, CEPHEID NEG #### [place] [address] [place] Albumin [Mass/Vol] 5.1 g/dL Normal 3.5-5.7 [facility] Comment on above: Performed By: #### M G, DDIMER, CMP, CBC, PHOS #### [place] [address] [place] Creatinine Clr Calc Pharmacy 111.67 Normal [facility] Comment on above: Performed By: #### M G, DDIMER, CMP, CBC, PHOS #### [place] [address] [place] GFR/1.73 sq M.predicted MDRD (S/P/Bld) [Vol rate/Area] mL/min/{1.73_m2} Normal [facility] Comment on above: Performed By: #### M G, DDIMER, CMP, CBC, PHOS #### [place] [address] [place] Creatinine [Mass/volume] in Serum or PlasmaOrdered By: Janina Valdovinos on 11-17-2023 Creatinine [Mass/Vol] 0.77 mg/dL Normal 0.70-1.30 [facility] Comment on above: Performed By: #### C OVID19 FLU RSV, CEPHEID NEG #### [place] [address] [place] Creatinine [Mass/volume] in Serum or PlasmaOrdered By: Luisana Grullon on 11-17-2023 Creatinine [Mass/Vol] 0.85 mg/dL Normal 0.70-1.30 [facility] Comment on above: Performed By: #### M Matt, DDDILLON, CMP, CBC, PHOS #### [place] [id number] [facility] D-Dimer High Sensitivityon 0 11-17-2023 D-Dimer High Sensitivity < 200 Normal 0-243 [facility] Comment on above: Result Comment: The reference range for D-dimer is <243 ng/mL D-dimer units. D-dimer results must be used in conjunction with a clinical pretest probability (PTP) assessment model for deep vein thrombosis (DVT) and pulmonary embolism (PE). Results <230 ng/mL d-dimer units can be used as a negative predictor in patients with low or moderate probability for DVT/PE. Results above the exclusion threshold of 230 ng/ml D-dimer units for DVT/PE may indicate the need for further diagnostic testing. D-Dimer can be increased in hospitalized patients due to co-morbid conditions. A hematocrit value greater than 55% may lead to inaccurate results in coagulation testing. Patients having hematocrit values >55% require a special collection tube for coagulation studies. Please contact the laboratory at [phone] for redraw instructions. PERFORMED BY: [place] [address] PATHOLOGIST JET OPERATOR ARMAND BLANCO M.D. Performed By: #### M Matt, JIMMY, CMP, CBC, PHOS #### [place] [id number] [facility] ECG 12 lead ECGon 11-17-2023 ECG 12 lead ECG [facility] [place] [address] Electrocardiograph Report Signed Patient: Lane Anguiano MR#: [id number] : 2005 Acct:[id number] Age/Sex: 18 / M ADM Date: 11/17/23 Loc: ER Room: Type: [facility] ER Attending Dr: Ordering Provider: Janina Valdovinos MD Date of Service: 11/17/2301/02/2036 ECG/ECG 12 lead ECG: Nausea/Vomiting/Diarr hea Copies to: Test Reason : Blood Pressure : */* mmHG Vent. Rate : 93 BPM Atrial Rate : 93 BPM P-R Int : 116 ms QRS Dur : 88 ms QT Int : 334 ms P-R-T Axes : 48 82 60 degrees QTcB Int : 415 ms Normal sinus rhythm with sinus arrhythmia Normal ECG When compared with ECG of 17-Nov-2023 11:53, No significant change was found Confirmed by JANINA VALDOVINOS MD ([id number]) on 11/18/2023 1:39:06 AM Referred By: Electronically Signed By: JANINA VALDOVINOS MD Transcribed By: MUS Signed By Janina Valdovinos MD 11/08 0139 Normal [facility] ECG 12 lead ECG [facility] Main [place] [id number] Electrocardiograph Report Signed Patient: Lane Anguiano MR#: [id number] : 2005 Acct:[id number] Age/Sex: 18 / M ADM Date: 11/17/23 Loc: ER Room: Type: [facility] ER Attending Dr: Ordering Provider: Luisana Grullon MD Date of Service: 11/17/2301/01/1115 ECG/ECG 12 lead ECG: Nausea/Vomiting/Diarr hea Copies to: Test Reason : Blood Pressure : 123/74 mmHG Vent. Rate : 84 BPM Atrial Rate : 84 BPM P-R Int : 132 ms QRS Dur : 92 ms QT Int : 372 ms P-R-T Axes : 76 82 74 degrees QTcB Int : 439 ms Normal sinus rhythm RBBB incomplete Left ventricular hypertrophy t wave inversion avl Confirmed by Luisana Grullon MD ([id number]) on 11/17/2023 6:31:20 PM Referred By: Electronically Signed By: Luisana Grullon MD Transcribed By: MUS Signed By Luisana Grullon MD 01/01 183 Normal [facility] ECG 12 lead ECG [facility] Main [address] [address] Electrocardiograph Report Signed Patient: Lane Anguiano MR#: [id number] : 2005 Acct:[id number] Age/Sex: 18 / M ADM Date: 11/17/23 Loc: ER Room: Type: [facility] ER Attending Dr: Ordering Provider: Luisana Grullon MD Date of Service: 11/17/2301/01/822 ECG/ECG 12 lead ECG: Nausea/Vomiting/Diarr hea Copies to: Test Reason : Blood Pressure : */* mmHG Vent. Rate : 83 BPM Atrial Rate : 83 BPM P-R Int : 130 ms QRS Dur : 92 ms QT Int : 372 ms P-R-T Axes : 72 79 68 degrees QTcB Int : 437 ms Normal sinus rhythm with sinus arrhythmia Right atrial enlargement Borderline ECG Voltage criteria for left ventricular hypertrophy t wave inversion avl Confirmed by Luisana Grullon MD ([id number]) on 11/17/2023 6:38:14 PM Referred By: Electronically Signed By: Luisana Grullon MD Transcribed By: MUS Signed By Luisana Grullon MD 01/01 183 Normal [facility] Erythrocyte distribution wid th [Ratio] by Automated countOrdered By: Janina Valdovinos on 11-17-2023 Erythrocyte distribution width (RBC) [Ratio] 13.2 % Normal 12.0-14.8 [facility] Comment on above: Performed By: #### C OVID19 FLU RSV, CEPHEID NEG #### [facility] [address] Erythrocyte distribution wid th [Ratio] by Automated countOrdered By: Luisana Grullon on 11-17-2023 Erythrocyte distribution width (RBC) [Ratio] 13.4 % Normal 12.0-14.8 [facility] Comment on above: Performed By: #### M G, DDIMER, CMP, CBC, PHOS #### [facility] [address] [place] [address] [place] Erythrocytes [#/volume] in B lood by Automated countOrdered By: Janina Valdovinos on 11-17-2023 RBC (Bld) [#/Vol] 4.68 10*6/uL Normal 3.90-5.60 [facility] Comment on above: Performed By: #### C OVID19 FLU RSV, CEPHEID NEG #### [facility] [address] [place] [address] [place] Erythrocytes [#/volume] in B lood by Automated countOrdered By: Luisana Grullon on 11-17-2023 RBC (Bld) [#/Vol] 5.12 10*6/uL Normal 3.90-5.60 [facility] Comment on above: Performed By: #### M G, DDIMER, CMP, CBC, PHOS #### [facility] [address] Fibrin D-dimer [Presence] in Platelet poor plasma by Latex agglutinationOrdered By: Luisana Grullon on 11-17-2023 Fibrin D-dimer LA Ql (PPP) < 200 ng/mL 0-243 [facility] Comment on above: The reference range for D-dimer is <243 ng/mL D-dimer units.D-dimer results must be used in conjunction with a clinicalpretest probability (PTP) assessment model for deep veinthrombosis (DVT) and pulmonary embolism (PE). Results <230ng/mL d-dimer units can be used as a negative predictor inpatients with low or moderate probability for DVT/PE.Results above the exclusion threshold of 230 ng/ml D-dimerunits for DVT/PE may indicate the need for furtherdiagnostic testing.D-Dimer can be increased in hospitalized patients due toco-morbid conditions.A hematocrit value greater than 55% may lead to inaccurate results in coagulation testing. Patients having hematocrit values >55% require a special collection tube for coagulation studies. Please contact the laboratory at [phone] for redraw instructions. Glucose [Mass/volume] in Ser um or PlasmaOrdered By: Janina Valdovinos on 11-17-2023 Glucose [Mass/Vol] 92 mg/dL Normal 70-100 [facility] Comment on above: ADA recommended refe rence rangeRandom Glucose Reference Range is dependent on time and content of last meal. Glucose of more than 200 mg/dL in a nonstressed, ambulatory subject supports the diagnosis of Diabetes Mellitus. Result Comment: [place] Glucose Reference Range is dependent on time and content of last meal. Glucose of more than 200 mg/dL in a nonstressed, ambulatory subject supports the diagnosis of Diabetes Mellitus. ADA recommended reference range Performed By: #### C OVID19 FLU RSV, CEPHEID NEG #### [facility] [address] [place] [address] [facility] Glucose [Mass/volume] in Ser um or PlasmaOrdered By: Luisana Grullon on 11-17-2023 Glucose [Mass/Vol] 95 mg/dL Normal 70-100 [facility] Comment on above: ADA recommended refe rence rangeRandom Glucose Reference Range is dependent on time and content of last meal. Glucose of more than 200 mg/dL in a nonstressed, ambulatory subject supports the diagnosis of Diabetes Mellitus. Result Comment: [place] Glucose Reference Range is dependent on time and content of last meal. Glucose of more than 200 mg/dL in a nonstressed, ambulatory subject supports the diagnosis of Diabetes Mellitus. ADA recommended reference range Performed By: #### M G, DDIMER, CMP, CBC, PHOS #### [address] Glucose [Mass/volume] in Uri ne by Test stripOrdered By: Luisana Grullon on 11-17-2023 Glucose Test strip (U) [Mass/Vol] Normal mg/dL Normal [facility] Hematocrit [Volume Fraction] of Blood by Automated countOrdered By: Janina Valdovinos on 11-17-2023 Hematocrit (Bld) [Volume fraction] 42.3 % Normal 38.8-50.0 [facility] Comment on above: Performed By: #### C OVID19 FLU RSV, CEPHEID NEG #### [address] Hematocrit [Volume Fraction] of Blood by Automated countOrdered By: Luisana Grullon on 11-17-2023 Hematocrit (Bld) [Volume fraction] 46.6 % Normal 38.8-50.0 [facility] Comment on above: Performed By: #### M G, DDIMER, CMP, CBC, PHOS #### [address] Hemoglobin Test strip Ql (U) Ordered By: Luisana Grullon on 11-17-2023 Hemoglobin Ql (U) Negative Negative [facility] Hemoglobin [Mass/volume] in BloodOrdered By: Janina Valdovinos on 11-17-2023 Hemoglobin (Bld) [Mass/Vol] 14.4 g/dL Normal 13.0-17.0 [facility] Comment on above: Performed By: #### C OVID19 FLU RSV, CEPHEID NEG #### [address] [place] [address] [place] Hemoglobin [Mass/volume] in BloodOrdered By: Luisana Grullon on 11-17-2023 Hemoglobin (Bld) [Mass/Vol] 15.6 g/dL Normal 13.0-17.0 [facility] Comment on above: Performed By: #### M G, DDIMER, CMP, CBC, PHOS #### [facility] [address] Ketones [Presence] in Urine by Test stripOrdered By: Luisana Grullon on 11-17-2023 Ketones Ql (U) 1+ High Negative [facility] Comment on above: Order Comment: Name Collection Type:: Clean-Voided Midstream Performed By: #### U A #### [address] Leukocyte esterase [Presence ] in Urine by Test stripOrdered By: Luisana Grullon on 11-17-2023 Leukocyte esterase Test strip Ql (U) Negative Normal Negative [facility] Comment on above: Order Comment: Name Collection Type:: Clean-Voided Midstream Performed By: #### U A #### [facility] [address] [place] [address] Leukocytes [#/volume] correc shekhar for nucleated erythrocytes in Blood by Automated counOrdered By: Janina Valdovinos on 11-17-2023 WBC corrected for nucl RBC Auto (Bld) [#/Vol] 10.1 10*3/uL 4.1-10.5 [facility] Leukocytes [#/volume] correc shekhar for nucleated erythrocytes in Blood by Automated counOrdered By: Luisana Grullon on 11-17-2023 WBC corrected for nucl RBC Auto (Bld) [#/Vol] 17.1 10*3/uL High 4.1-10.5 [facility] Leukocytes [#/volume] in Blo od by Automated countOrdered By: Janina Valdovinos on 11-17-2023 WBC (Bld) [#/Vol] 10.1 10*3/uL Normal 4.1-10.5 [facility] Comment on above: Performed By: #### C OVID19 FLU RSV, CEPHEID NEG #### [place] [address] [place] Leukocytes [#/volume] in Blo od by Automated countOrdered By: Luisana Grullon on 11-17-2023 WBC (Bld) [#/Vol] 17.1 10*3/uL High 4.1-10.5 [facility] Comment on above: Performed By: #### M G, DDIMER, CMP, CBC, PHOS #### [place] [address] [place] Lymphocytes [#/volume] in Bl ood by Automated countOrdered By: Janina Valdovinos on 11-17-2023 Lymphocytes (Bld) [#/Vol] 0.2 10*3/uL Low 1.00-4.8 [facility] Comment on above: Performed By: #### C OVID19 FLU RSV, CEPHEID NEG #### [place] [address] [place] Lymphocytes [#/volume] in Bl ood by Automated countOrdered By: Luisana Grullon on 11-17-2023 Lymphocytes (Bld) [#/Vol] 0.4 10*3/uL Low 1.00-4.8 [facility] Comment on above: Performed By: #### M G, DDIMER, CMP, CBC, PHOS #### [place] [address] [place] Lymphocytes/100 leukocytes i n Blood by Automated countOrdered By: Janina Valdovinos on 11-17-2023 Lymphocytes/100 WBC (Bld) 2.3 % Normal . [facility] Comment on above: Performed By: #### C OVID19 FLU RSV, CEPHEID NEG #### [place] [address] [place] Lymphocytes/100 leukocytes i n Blood by Automated countOrdered By: Luisana Grullon on 11-17-2023 Lymphocytes/100 WBC (Bld) 2.0 % Normal . [facility] Comment on above: Performed By: #### M G, DDIMER, CMP, CBC, PHOS #### [place] [address] [place] MCH [Entitic mass] by Automa shekhar countOrdered By: Janina Valdovinos on 11-17-2023 MCH (RBC) [Entitic mass] 30.8 pg Normal 27.5-35.2 [facility] Comment on above: Performed By: #### C OVID19 FLU RSV, CEPHEID NEG #### [address] MCH [Entitic mass] by Automa shekhar countOrdered By: Luisana Grullon on 11-17-2023 MCH (RBC) [Entitic mass] 30.4 pg Normal 27.5-35.2 [facility] Comment on above: Performed By: #### M G, DDIMER, CMP, CBC, PHOS #### [address] MCHC Auto (RBC) [Mass/Vol]Or dered By: Janina Valdovinos on 11-17-2023 MCHC (RBC) [Mass/Vol] 34.0 g/dL 32.5-35.6 [facility] MCHC Auto (RBC) [Mass/Vol]Or dered By: Luisana Grullon on 11-17-2023 MCHC (RBC) [Mass/Vol] 33.4 g/dL 32.5-35.6 [facility] MCV [Entitic volume] by Auto mated countOrdered By: Janina Valdovinos on 11-17-2023 MCV (RBC) [Entitic vol] 90.5 fL Normal 83.5-101 F [facility] Comment on above: Performed By: #### C OVID19 FLU RSV, CEPHEID NEG #### [address] MCV [Entitic volume] by Auto mated countOrdered By: Luisana Grullon on 11-17-2023 MCV (RBC) [Entitic vol] 90.9 fL Normal 83.5-101 F [facility] Comment on above: Performed By: #### M G, DDIMER, CMP, CBC, PHOS #### [address] Magnesium [Mass/volume] in S sabi or PlasmaOrdered By: Luisana Grullon on 08-09-2024 Magnesium [Mass/Vol] 1.8 mg/dL Low 1.9-2.7 [facility] Comment on above: Result Comment: PERF ORMED BY: [place] [address] PATHOLOGIST JET OPERATOR ARMAND BLANCO M.D. Performed By: #### M G, DDIMER, CMP, CBC, PHOS #### [facility] [address] [place] [address] Monocyte distribution width [Entitic volume] in Blood by AutomatedOrdered By: Janina Valdovinos on 11-17-2023 Monocyte distribution width Auto (Bld) [Entitic vol] 26.24 % High 0.00-20.00 [facility] Comment on above: For adults in ED, MD W > 20.0 may be associated with a higher risk of sepsis during the first 12 hrs of hospital admission Monocyte distribution width [Entitic volume] in Blood by AutomatedOrdered By: Luisana Grullon on 11-17-2023 Monocyte distribution width Auto (Bld) [Entitic vol] 18.38 % 0.00-20.00 [facility] Neutrophils [#/volume] in Bl ood by Automated countOrdered By: Janina Valdovinos on 11-17-2023 Neutrophils (Bld) [#/Vol] 9.0 10*3/uL High 1.8-7.7 [facility] Comment on above: Performed By: #### C OVID19 FLU RSV, CEPHEID NEG #### [facility] [address] [place] [address] Neutrophils [#/volume] in Bl ood by Automated countOrdered By: Luisana Grullon on 11-17-2023 Neutrophils (Bld) [#/Vol] 15.9 10*3/uL High 1.8-7.7 [facility] Comment on above: Performed By: #### M G, DDIMER, CMP, CBC, PHOS #### [facility] [address] [place] [address] Nitrite Test strip Ql (U)Ord ered By: Luisana Grullon on 11-17-2023 Nitrite Ql (U) Negative Negative [facility] No Panel InformationOrdered By: Janina Valdovinos on 11-17-2023 Estimated GFR (CKD-EPI) > 60.0 mL/Min [facility] Creatinine Clearance (Chem 126.19 [facility] No Panel InformationOrdered By: Luisana Grullon on 11-17-2023 Estimated GFR (CKD-EPI) > 60.0 mL/Min [facility] Creatinine Clearance (Chem 111.67 [facility] Nucleated erythrocytes [Pres ence] in Blood by Automated countOrdered By: Janina Valdovinos on 11-17-2023 Nucleated RBC Auto Ql (Bld) 0.0 /100{WBC} 0-0.5 [facility] Nucleated erythrocytes [Pres ence] in Blood by Automated countOrdered By: Luisana Grullon on 11-17-2023 Nucleated RBC Auto Ql (Bld) 0.1 /100{WBC} 0-0.5 [facility] Phosphate [Mass/volume] in S sabi or PlasmaOrdered By: Luisana Grullon on 11-17-2023 Phosphate [Mass/Vol] 2.2 mg/dL Low 2.5-4.5 [facility] Comment on above: Performed By: #### M Matt, DDIMER, CMP, CBC, PHOS #### [facility] [address] [place] [address] [place] Platelet mean volume [Entiti c volume] in Blood by Automated countOrdered By: Janina Valdovinos on 11-17-2023 Platelet mean volume (Bld) [Entitic vol] 11.3 fL High 6.6-10.1 [facility] Comment on above: Performed By: #### C OVID19 FLU RSV, CEPHEID NEG #### [facility] [address] [place] [address] [place] Platelet mean volume [Entiti c volume] in Blood by Automated countOrdered By: Luisana Grullon on 11-17-2023 Platelet mean volume (Bld) [Entitic vol] 11.1 fL High 6.6-10.1 [facility] Comment on above: Performed By: #### M G, DDIMER, CMP, CBC, PHOS #### [facility] [address] [place] [address] [place] Platelets [#/volume] in Bloo d by Automated countOrdered By: Janina Valdovinos on 11-17-2023 Platelets (Bld) [#/Vol] 114 10*3/uL Low 150-450 [facility] Comment on above: Performed By: #### C OVID19 FLU RSV, CEPHEID NEG #### [facility] [address] [place] [id number] [place] Platelets [#/volume] in Bloo d by Automated countOrdered By: Luisana Grullon on 11-17-2023 Platelets (Bld) [#/Vol] 121 10*3/uL Low 150-450 [facility] Comment on above: Performed By: #### M G, DDIMER, CMP, CBC, PHOS #### [place] [address] [place] Potassium [Moles/volume] in Serum or PlasmaOrdered By: Janina Valdovinos on 11-17-2023 Potassium [Moles/Vol] 3.6 mmol/L Normal 3.5-5.1 [facility] Comment on above: Performed By: #### C OVID19 FLU RSV, CEPHEID NEG #### [place] [address] [place] Potassium [Moles/volume] in Serum or PlasmaOrdered By: Luisana Grullon on 11-17-2023 Potassium [Moles/Vol] 3.9 mmol/L Normal 3.5-5.1 [facility] Comment on above: Performed By: #### M G, DDIMER, CMP, CBC, PHOS #### [place] [address] [place] Protein Test strip (U) [Mass /Vol]Ordered By: Luisana Grullon on 11-17-2023 Protein (U) [Mass/Vol] Negative Negative [facility] Protein [Mass/volume] in Ser um or PlasmaOrdered By: Janina Valdovinos on 11-17-2023 Protein [Mass/Vol] 7.0 g/dL Normal 6.4-8.9 [facility] Comment on above: Performed By: #### C OVID19 FLU RSV, CEPHEID NEG #### [place] [id number] [place] Protein [Mass/volume] in Ser um or PlasmaOrdered By: Luisana Grullon on 11-17-2023 Protein [Mass/Vol] 7.8 g/dL Normal 6.4-8.9 [facility] Comment on above: Performed By: #### M Matt, DDIMER, CMP, CBC, PHOS #### [facility] [address] [place] [address] Serum globulin measurement b y calculation (mass/volume)Ordered By: Janina Valdovinos on 11-17-2023 Globulin (S) [Mass/Vol] 2.4 g/dL Normal [facility] Comment on above: Performed By: #### C OVID19 FLU RSV, CEPHEID NEG #### [address] Serum globulin measurement b y calculation (mass/volume)Ordered By: Luisana Grullon on 11-17-2023 Globulin (S) [Mass/Vol] 2.7 g/dL Normal F [facility] Comment on above: Performed By: #### M Matt, DDIMER, CMP, CBC, PHOS #### [address] Serum or plasma albumin/glob ulin mass ratioOrdered By: Janina Valdovinos on 11-17-2023 Albumin/Globulin [Mass ratio] 1.9 {ratio} [facility] Comment on above: Performed By: #### C OVID19 FLU RSV, CEPHEID NEG #### [address] Serum or plasma albumin/glob ulin mass ratioOrdered By: Luisana Grullon on 11-17-2023 Albumin/Globulin [Mass ratio] 1.9 {ratio} [facility] Comment on above: Performed By: #### M Matt, DDIMER, CMP, CBC, PHOS #### [facility] [address] [place] [address] Serum or plasma anion gap de terminationOrdered By: Janina Valdovinos on 11-17-2023 Anion gap [Moles/Vol] 12.5 mmol/L Normal 6.0-15.0 [facility] Comment on above: Performed By: #### C OVID19 FLU RSV, CEPHEID NEG #### [address] Serum or plasma anion gap de terminationOrdered By: Luisana Grullon on 11-17-2023 Anion gap [Moles/Vol] 14.8 mmol/L Normal 6.0-15.0 [facility] Comment on above: Performed By: #### M G, DDIMER, CMP, CBC, PHOS #### [place] [address] [place] Sodium [Moles/volume] in Ser um or PlasmaOrdered By: Janina Valdovinos on 11-17-2023 Sodium [Moles/Vol] 139 mmol/L Normal 136-145 [facility] Comment on above: Performed By: #### C OVID19 FLU RSV, CEPHEID NEG #### [place] [address] [place] Sodium [Moles/volume] in Ser um or PlasmaOrdered By: Luisana Grullon on 11-17-2023 Sodium [Moles/Vol] 141 mmol/L Normal 136-145 [facility] Comment on above: Performed By: #### M G, DDIMER, CMP, CBC, PHOS #### [address] Specific gravity Test strip (U) [Rel density]Ordered By: Luisana Grullon on 11-17-2023 Specific gravity (U) [Rel density] 1.035 High 1.001-1.030 [facility] Urea nitrogen [Mass/volume] in Serum or PlasmaOrdered By: Janina Valdovinos on 11-17-2023 Urea nitrogen [Mass/Vol] 13 mg/dL Normal 7-25 [facility] Comment on above: Performed By: #### C OVID19 FLU RSV, CEPHEID NEG #### [place] [address] [place] Urea nitrogen [Mass/volume] in Serum or PlasmaOrdered By: Luisana Grullon on 11-17-2023 Urea nitrogen [Mass/Vol] 11 mg/dL Normal 7-25 [facility] Comment on above: Performed By: #### M G, DDIMER, CMP, CBC, PHOS #### [facility] [address] [place] [address] [place] Urinalysison 11-17-2023 Bilirubin,Urine Negative Normal Negative [facility] Comment on above: Order Comment: Name Collection Type:: Clean-Voided Midstream Performed By: #### U A #### [address] Glucose Ql (U) Normal Normal Normal [facility] Comment on above: Order Comment: Name Collection Type:: Clean-Voided Midstream Performed By: #### U A #### [place] [address] [place] Nitrite,Urine Negative Normal Negative [facility] Comment on above: Order Comment: Name Collection Type:: Clean-Voided Midstream Performed By: #### U A #### [address] Occult Blood,Urine Negative Normal Negative [facility] Comment on above: Order Comment: Name Collection Type:: Clean-Voided Midstream Result Comment: PERF ORMED BY: [place] [address] PATHOLOGIST JET OPERATOR ARMAND BLANCO M.D. Performed By: #### U A #### [place] [address] [place] Protein,Urine Negative Normal Negative [facility] Comment on above: Order Comment: Name Collection Type:: Clean-Voided Midstream Performed By: #### U A #### [place] [address] [place] Specificy [place],Urine 1.035 High 1.001-1.030 [facility] Comment on above: Order Comment: Name Collection Type:: Clean-Voided Midstream Performed By: #### U A #### [address] Urobilinogen,Urine Normal Normal Normal [facility] Comment on above: Order Comment: Name Collection Type:: Clean-Voided Midstream Performed By: #### U A #### [facility] [address] [place] [address] Urine appearanceOrdered By: Luisana Grullon on 11-17-2023 Appearance (U) Clear Normal Clear [facility] Comment on above: Order Comment: Name Collection Type:: Clean-Voided Midstream Performed By: #### U A #### [facility] [address] [place] [address] Urobilinogen Test strip (U) [Mass/Vol]Ordered By: Luisana Grullon on 11-17-2023 Urobilinogen (U) [Mass/Vol] Normal mg/dL Normal [facility] XR chest 2V*on 11-17-2023 XR chest 2V* [facility] [place] [address] [place] [address] XRay Report Signed Patient: Lane Anguiano MR#: [id number] : 2005 Acct:[id number] Age/Sex: 18 / M ADM Date: 11/17/23 Loc: ER Room: Type: [facility] ER Attending Dr: Copies to: Luisana Grullon MD Ordering Provider: Luisana Grullon MD Date of Service: 11/17/23 XR/XR chest 2V*: Nausea/Vomiting/Diarr hea PA AND LATERAL CHEST: CLINICAL HISTORY: Nausea, vomiting, diarrhea, weakness, headache and tachycardia COMPARISON: None There is no focal parenchymal consolidation, effusion or pneumothorax. The cardiac, hilar and mediastinal silhouettes are within normal limits. There is no vascular congestion. The visualized bony thorax is intact. XR/XR chest 2V* IMPRESSION: NO ACUTE CARDIOPULMONARY ABNORMALITY. Impression dictated by: Cici Simon M.D.11/17/2023 8:44 AM Dictation Location: [place] [address] Transcribed By: [facility] 11/17/23843 Dictated By: Cici Simon MD 11/17/23842 Signed By: 11/17/23843 Normal [facility] pH of Urine by Test stripOrd ered By: Luisana Grullon on 11-17-2023 pH (U) 7.0 [pH] Normal 5.0-9.0 [facility] Comment on above: Order Comment: Name Collection Type:: Clean-Voided Midstream Performed By: #### U A #### [facility] [address] OVA AND PARASITE EXAMINATION on 06-25-2021 Ova + Parasite Exam Final report Normal [facility] Comment on above: Result Comment: Thes e results were obtained using wet preparation(s) and trichrome stained smear. This test does not include testing for Cryptosporidium parvum, Cyclospora, or Microsporidia. Performed By: #### O VAPE #### [facility] [address] [address] [address] Cherry Guerrero Result 1 Comment Normal [facility] Comment on above: Result Comment: No o va, cysts, or parasites seen. . One negative specimen does not rule out the possibility of a parasitic infection. Performed By: #### O VAPE #### [facility] [address] [place] [address] Dr. Cherry Guerrero STOOL CULTUREon 06-25-2021 Campylobacter Culture Final report Normal [facility] Comment on above: Performed By: #### C XSTOOL #### [facility] [address] [address] [address] Cherry Guerrero E coli Shiga Toxin EIA Negative Normal Negative [facility] Comment on above: Performed By: #### C XSTOOL #### [facility] [address] [place] [address] Dr. Cherry Guerrero Result 1 Comment Normal [facility] Comment on above: Result Comment: No S almonella or Shigella recovered. Performed By: #### C XSTOOL #### [facility] [address] [address] [address] Cherry Guerrero Result Comment: No C ampylobacter species isolated. Salmonella/Shigella Screen Final report Normal [facility] Comment on above: Performed By: #### C XSTOOL #### [facility] [address] [place] [address] Dr. Cherry Guerrero C. DIFF PCRon 06-20-2021 C. DIFFICILE PCR Negative Normal NEGATIVE [facility] Comment on above: Performed By: #### C DIFPOC #### [facility] [address] [address] [address] Cherry Guerrero XR Abdomen 2 Viewson 022 XR Abdomen 2 Views CLINICAL HISTORY: Generalized umbilical pain for one week with occasional nausea and diarrhea. COMPARISON: None. RESULT: Nonspecific nondilated bowel gas pattern. Scattered feces throughout the colon. No abnormal calcifications. No acute osseous findings. No evidence for pneumoperitoneum. Visualized lung bases unremarkable. IMPRESSION: No acute radiographic findings. Report reported and signed by Sid Carrington on 06/18/2021 1416 Normal [facility] Specialist Vital Signs Date Time Vital Sign Value Performing Clinician Facility 04-18-2024 14:05-0500 Body height 177.8 cm Dawood MarqetaedenMacuLogix DO Work Phone: [facility] 04-18-2024 14:05-0500 Body mass index (BMI) [Ratio] 18.08 kg/m2 Dawood Biedenbach DO Work Phone: [facility] 04-18-2024 14:05-0500 Body weight 57.15 kg Dawood Biedenbach DO Work Phone: [facility] 04-04-2024 13:29-0500 Body height 177.8 cm Dawood Biedenbach DO Work Phone: [facility] 04-04-2024 13:29-0500 Body mass index (BMI) [Ratio] 18.08 kg/m2 Dawood Biedenbach DO Work Phone: [facility] 04-04-2024 13:29-0500 Body weight 57.15 kg Dawood Biedenbach DO Work Phone: [facility] 03-26-2024 15:39-0500 Body height 177.8 cm Dawood Biedenbach DO Work Phone: [facility] 03-26-2024 15:39-0500 Body mass index (BMI) [Ratio] 18.08 kg/m2 Dawood Biedenbach DO Work Phone: [facility] 03-26-2024 15:39-0500 Body weight 57.15 kg Dawood Biedenbach DO Work Phone: [facility] 03-26-2024 10:00-0500 Diastolic blood pressure 76 mm[Hg] Yomi Granda DO Work Phone: [facility] 03-26-2024 10:00-0500 Heart rate 85 /min Yomi Granda DO Work Phone: [facility] 03-26-2024 10:00-0500 Respiratory rate 16 /min Yomi Granda DO Work Phone: [facility] 03-26-2024 10:00-0500 SaO2% (BldA) [Mass fraction] 99 % Yomi Granda DO Work Phone: [facility] 03-26-2024 10:00-0500 Systolic blood pressure 126 mm[Hg] Yomi Granda DO Work Phone: [facility] 03-26-2024 05:46-0500 Body height 177.8 cm Yomi Granda DO Work Phone: [facility] 03-26-2024 05:46-0500 Body temperature 97.9 [degF] Yomi Granda DO Work Phone: [facility] 03-26-2024 05:46-0500 Body weight 57.4 kg Yomi Granda DO Work Phone: [facility] 03-01-2024 13:55-0500 Body height 177.8 cm Dawood Bowles DO Work Phone: [facility] 03-01-2024 13:55-0500 Body mass index (BMI) [Ratio] 18.08 kg/m2 Dawood Bowles DO Work Phone: [facility] 03-01-2024 13:55-0500 Body weight 57.15 kg Dawood Bowles DO Work Phone: [facility] 02-25-2024 14:27-0500 Body temperature 98.2 [degF] Martita Khan CHIEF PAYROLL CLERK Work Phone: [facility] 02-25-2024 14:27-0500 Heart rate 70 /min Martita Khan CHIEF PAYROLL CLERK Work Phone: [facility] 02-25-2024 14:27-0500 SaO2% (BldA) [Mass fraction] 97 % Martita Khan CHIEF PAYROLL CLERK Work Phone: [facility] 02-15-2024 10:17-0500 Body height 177.8 cm Dawood Bowles DO Work Phone: [facility] 02-15-2024 10:17-0500 Body mass index (BMI) [Ratio] 18.08 kg/m2 Dawood Bowles DO Work Phone: [facility] 02-15-2024 10:17-0500 Body weight 57.15 kg Dawood Bowles DO Work Phone: [facility] 02-07-2024 13:39-0400 Body height 175.26 cm DO Yomi Cosbyelijah Work Phone: [facility] 02-07-2024 13:39-0400 Body weight 56.25 kg DO MattAriadne Reji Aleaelijah Work Phone: [facility] 02-07-2024 13:38-0400 Body temperature 98.2 [degF] DO MattAriande Reji Aleaelijah Work Phone: [facility] 02-07-2024 13:38-0400 Diastolic blood pressure 78 mm[Hg] DO Yomi Mendoza Aleaelijah Work Phone: [facility] 02-07-2024 13:38-0400 Heart rate 76 /min DO Yomi Granda Work Phone: [facility] 02-07-2024 13:38-0400 Respiratory rate 18 /min DO Yomi Granda Work Phone: [facility] 02-07-2024 13:38-0400 SaO2% (BldA) [Mass fraction] 99 % DO Yomi Granda Work Phone: [facility] 02-07-2024 13:38-0400 Systolic blood pressure 146 mm[Hg] DO Yomi Granda Work Phone: [facility] 02-06-2024 11:46-0400 Body height 177.8 cm Luca Granda DO Work Phone: [facility] 02-06-2024 11:46-0400 Body mass index (BMI) [Ratio] 18.08 kg/m2 Luca Granda DO Work Phone: [facility] 02-06-2024 11:46-0400 Body temperature 97.11 [degF] Luca Granda DO Work Phone: [facility] 02-06-2024 11:46-0400 Body weight 57.15 kg Luca Granda DO Work Phone: [facility] 02-06-2024 11:46-0400 Diastolic blood pressure 80 mm[Hg] Luca Granda DO Work Phone: [facility] 02-06-2024 11:46-0400 Heart rate 121 /min Luca Granda DO Work Phone: [facility] 02-06-2024 11:46-0400 Systolic blood pressure 122 mm[Hg] Luca Granda DO Work Phone: [facility] 02-02-2024 10:33-0400 Body height 177.8 cm Luca Granda DO Work Phone: [facility] 02-02-2024 10:33-0400 Body mass index (BMI) [Ratio] 17.22 kg/m2 Luca Granda DO Work Phone: [facility] 02-02-2024 10:33-0400 Body temperature 98.6 [degF] Luca Granda DO Work Phone: [facility] 02-02-2024 10:33-0400 Body weight 54.43 kg Luca Granda DO Work Phone: [facility] 02-02-2024 10:33-0400 Diastolic blood pressure 76 mm[Hg] Luca Granda DO Work Phone: [facility] 02-02-2024 10:33-0400 Heart rate 65 /min Luca Granda DO Work Phone: [facility] 02-02-2024 10:33-0400 SaO2% (BldA) [Mass fraction] 99 % Luca Granda DO Work Phone: [facility] 02-02-2024 10:33-0400 Systolic blood pressure 122 mm[Hg] Luca Granda DO Work Phone: [facility] 01-29-2024 10:04-0400 Body height 177.8 cm Dawood Bowles DO Work Phone: [facility] 01-29-2024 10:04-0400 Body mass index (BMI) [Ratio] 18.22 kg/m2 Dawood Bowles DO Work Phone: [facility] 01-29-2024 10:04-0400 Body weight 57.61 kg Dawood Bowles DO Work Phone: [facility] 01-28-2024 15:03-0400 Diastolic blood pressure 91 mm[Hg] DO Yomi Granda Work Phone: [facility] 01-28-2024 15:03-0400 Heart rate 84 /min DO Yomi Granda Work Phone: [facility] 01-28-2024 15:03-0400 Respiratory rate 16 /min DO Yomi Granda Work Phone: [facility] 01-28-2024 15:03-0400 SaO2% (BldA) [Mass fraction] 99 % DO Yomi Granda Work Phone: [facility] 01-28-2024 15:03-0400 Systolic blood pressure 134 mm[Hg] DO Yomi Granda Work Phone: [facility] 01-28-2024 09:15-0400 Body temperature 99.5 [degF] DO Yomi Granda Work Phone: [facility] 01-28-2024 09:14-0400 Body height 179.07 cm DO Yomi Granda Work Phone: [facility] 01-28-2024 09:14-0400 Body weight 55 kg DO Yomi Granda Work Phone: [facility] 01-23-2024 14:44-0400 Body height 175.3 cm Juana Medina PA Work Phone: [facility] 01-23-2024 14:44-0400 Body mass index (BMI) [Ratio] 18.84 kg/m2 Juana Medina PA Work Phone: [facility] 01-23-2024 14:44-0400 Body temperature 97.3 [degF] Juana Medina PA Work Phone: [facility] 01-23-2024 14:44-0400 Body weight 57.88 kg Juana Medina PA Work Phone: [facility] 01-23-2024 14:44-0400 Diastolic blood pressure 60 mm[Hg] Juana Medina PA Work Phone: [facility] 01-23-2024 14:44-0400 Heart rate 80 /min Juana Medina PA Work Phone: [facility] 01-23-2024 14:44-0400 SaO2% (BldA) [Mass fraction] 99 % Juana Medina PA Work Phone: [facility] 01-23-2024 14:44-0400 Systolic blood pressure 110 mm[Hg] Juana Medina PA Work Phone: [facility] 11-17-2023 22:07-0400 Body temperature 99.4 [degF] DO Yomi Granda Work Phone: [facility] 11-17-2023 22:07-0400 Diastolic blood pressure 60 mm[Hg] DO Yomi Granda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 (unrecognized section and content) Goals may be documented in a n alternate sectionGoals may be documented in an alternate sectionGoals may be documented in an alternate sectionGoals may be documented in an alternate sectionGoals may be documented in an alternate section Reason for Visit (unrecogniz ed section and content) Reason Comments URI Pt states he has a s uper dry and painful throat that started on 01/21/24. Pt states he had a bloody nose on 01/19/24. Pt state he has a fever yesterday that was 101.7. Pt he has taken otc tylenol and aleve. Reason Comments Peritonsillar Abscess New Patient : in E R peritonsillar abscess Reason Comments tonsillar abscess Reason Comments Sore Throat J Carlos throat h/o jong tonsillar abscess Reason Comments Sore Throat Patient treated agai n in UC Reason Comments Peritonsillar Abscess In ER today Reason Comments Med Change Request Reason Comments Sore Throat 1 week j carlos Reason Comments Post-op Post op Tonsillectom y / post op bleed FOR RECORDS PERTAINING TO PATIENTS WHO ARE OR HAVE BEEN ENROLLED IN A CHEMICAL DEPENDENCY/SUBSTANCEABUSE PROGRAM, SOME INFORMATION MAY BE OMITTED. This clinical summary was aggregated from multiple sources. Caution should be exercised in using it in the provision of clinical care. This summary normalizes information from multiple sources, and as a consequence, information in this document may materially change the coding, format and clinical context of patient data. In addition, data may be omitted in some cases. CLINICAL DECISIONS SHOULD BE BASED ON THE PRIMARY CLINICAL RECORDS. [employer] provides no warranty or guarantee of the accuracy or completeness of information in this document.
== END 2024-04-16 13:20 | disposition home or self-care (01) ==
LOC: ER 07:42 → OR 08:12 → ER 04-30 14:53 → SURGOUT 04-30 14:55
PROVIDERS: Emergency Medicine; PCP Family Medicine; Visit Provider Dermatology
PROC: (CPT 170; principal; 2024-04-16 08:15)
DX: J95.830 Postprocedural hemorrhage of a respiratory system organ or structure following a respiratory system procedure (principal); R51.9 Headache, unspecified; Z98.890 Other specified postprocedural states
CPT/HCPCS: 42962; 36415; 80053; 85025; 94640; 96365; 96374; 96375; 96376; 99284; 99285; J0131; J0330; J1100; J1171; J1200; J1885; J2250; J2405; J2704; J2765; J3010

== ENCOUNTER → 2024-04-16 07:55 | Day surgery (SDC) | payer BC, SELFPAY | LOC: SURGOUT 04-18 10:09 | PROVIDERS: PCP Family Medicine | DX: Z53.9 Procedure and treatment not carried out, unspecified reason (principal) | CPT/HCPCS: J0131; J0330; J1100; J2250; J2704; J3010 ==